=== PATIENT | male | born 1980 | race Caucasian/White ===

== ENCOUNTER 2020-11-05 15:27 | Inpatient (IN) | payer MEDICAID, SELFPAY ==
[2020-11-05] VITALS (8 sets, daily range): BP systolic 123–165; BP diastolic 68–111; PULSE 73–94; RESP 16–20; TEMP 36.6–37.1; O2SAT 97–100; BMI 29.0; BMI 27.5
[2020-11-05 16:18] LABS: Erythrocyte Sedimentation Rate 22 mm/hr (0-20)
[2020-11-05 16:19] LABS: Absolute Lymphocyte Count 1.99 X10^3/uL (0.83-4.51); Absolute Neutrophil Count 6.2 X10^3/uL (2.0-7.7); Basophil# 0.04 X10^3/uL; Basophil% 0.4 % (0-1); Eosinophil# 0.04 X10^3/uL; Eosinophils% 0.4 % (0-5); Hematocrit 45.7 % (40-54); Hemoglobin 15.4 g/dL (13.0-16.5); Lymphocyte # 1.99 X10^3/ul (4.0); Lymphocyte % 22.2 % (19-41); Mean Corp Hgb Conc 33.7 g/dL (32-36); Mean Corpuscular Hgb 32.3 pg (27.0-32.0); Mean Corpuscular Volume 95.8 fL (80-94); Mean Platelet Vol. 11.4 fl (6.2-12.0); Monocyte# 0.67 X10^3/uL; Monocyte% 7.5 % (0-10); NRBC Flagged by Analyzer 0 % (0-5); Neutrophil # 6.18 X10^3/uL (2.7-7.7); Neutrophil % 69.1 % (47-70); Platelet Count 149 K/mm3 (150-450); RBC Distribution Width CV 12.1 % (11.6-14.6); RBC Distribution Width SD 42.9 fl (35.1-43.9); Red Blood Count 4.77 M/mm3 (4.6-6.2)
[2020-11-05 16:26] LABS: Anion Gap 6 (5-15); BUN 9 mg/dL (7-18); BUN/Creat Ratio 12.1 RATIO (10-20); Calcium,Total 8.4 mg/dL (8.5-10.1); Chloride 101 mmol/L (98-107); Creatinine, Serum 0.74 mg/dL (0.70-1.30); EST Glomerular Filtration Rate 124 mL/min (>60); Est Glom Filt Rate - Afr Amer 150 mL/min (>60); Estimated Creatinine Clearance 149.96 ml/min; Glucose 104 mg/dL (74-106); Potassium 3.6 mmol/L (3.5-5.1); Sodium Level 135 mmol/L (136-145)
--- NOTE | 2020-11-05 16:27 | RAD_ITS ---
STUDY: X-RAY - RIGHT RADIUS AND ULNA REASON FOR EXAM: Male, 40 years old. infection -- IV drug use TECHNIQUE: 2 view(s) of the forearm. COMPARISON: None. FINDINGS: There is no demonstrated soft tissue swelling. Normal visualized radius. Normal visualized ulna. There is no demonstrated acute fracture. RAD/Forearm 2 Views IMPRESSION: Normal x-ray examination of the radius and ulna. Electronically Signed: Alonzo Barker MD at 16:43 EDT , Service support ,
--- NOTE | 2020-11-05 16:27 | RAD_ITS ---
STUDY: X-RAY - RIGHT WRIST REASON FOR EXAM: Male, 40 years old. infection -- IV drug use TECHNIQUE: 3 view(s) of the wrist were obtained. COMPARISON: X-ray dated October 19, 2014 FINDINGS: No demonstrated osteomyelitis. No acute fractures. Diffuse mild to moderate soft tissue swelling. Linear radiopaque density near the head of the second metacarpal bone and distal phalanx of the second digit presumably represents calcifications or small retained foreign bodies. These were present on the prior study. Normal visualized distal radius and ulna. Normal radiocarpal articulation. Normal distal radioulnar articulation. Normal carpal bones. Normal carpal articulations. Normal carpometacarpal articulation of the thumb. Normal second through fifth carpometacarpal articulations. Normal visualized metacarpal bones. RAD/Wrist min 3 Views IMPRESSION: Mild to moderate soft tissue swelling Electronically Signed: Alonzo Barker MD at 16:56 EDT , Service support ,
--- NOTE | 2020-11-05 16:27 | RAD_ITS ---
STUDY: X-RAY - LEFT FOOT CLINICAL: Male, 40 years old. WOUNDS ON DORSAL FOOT WITH REDNESS AND SWELLING, PAIN HX OF RECENT FX TO 1ST DIGIT IV DRUG USE TECHNIQUE: 3 view(s) of the foot. COMPARISON: None. FINDINGS: A pathologic horizontal fractures present through the proximal shaft of the proximal phalanx of the great toe due to cortical erosion and moderate intramedullary bony destruction in this region from active osteomyelitis. The fracture fragments are mildly displaced. Normal talus, calcaneus, and tarsal bones. Normal visualized subtalar, talonavicular, calcaneocuboid, tarsal and tarsometatarsal articulations. Normal metatarsi. Normal metatarsophalangeal joint of the great toe. Normal tibial and fibular sesamoid bones. Normal interphalangeal joint of the great toe. Normal second through fifth metatarsophalangeal joints. Normal interphalangeal joints and phalanges of the lesser toes. The soft tissues are swollen. RAD/Foot min 3 Views IMPRESSION: 1. A pathologic horizontal fractures present through the proximal shaft of the proximal phalanx of the great toe due to cortical erosion and moderate intramedullary bony destruction in this region from active osteomyelitis. Electronically Signed: Alonzo Barker MD at 16:47 EDT , Service support ,
[2020-11-05 16:29] LABS: Alcohol, Blood (Medical)-Serum < 3.0 mg/dL
[2020-11-05 16:42] LABS: Lactic Acid 1.2 mmol/L (0.4-1.9)
[2020-11-05 16:42] LABS: Amphetamine Urine VISTA POSITIVE (<1000 ng/mL); Barbiturate Urine VISTA NEGATIVE (< 200 ng/mL); Benzodiazepine Urine VISTA NEGATIVE (< 200 ng/mL); Cocaine Urine VISTA NEGATIVE (< 300 ng/mL); Ecstacy Urine VISTA NEGATIVE (< 500 ng/mL); Methadone Urine VISTA NEGATIVE (< 300 ng/mL); PCP Urine VISTA NEGATIVE (< 25 ng/mL); THC Urine VISTA POSITIVE (< 50 ng/mL); Vista UDS pH Range 6
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
[2020-11-05] MEDS: fentaNYL 100 MCG/2 ML Ampul 50 MCG IV (16:57)
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
--- NOTE | 2020-11-05 18:53 | NURSING ---
pt in bathroom, ambulatory-
--- NOTE | 2020-11-05 19:32 | PCM.RX.CS ---
Consult Pharmacy has been consulted to manage selected antiobiotic: Vancomycin Type of Consult: New start Suspected Infection: Skin/Soft tissue, Osteomyelitis Prior Doses of Antibiotics Received/Current Regimen: Medications Vancomycin HCl 1,500 mg/ (Sodium Chloride) 530 mls @ 250 mls/hr IV Q12H JEANNE Vancomycin HCl 1,500 mg/ (Sodium Chloride) 530 mls @ 250 mls/hr IV X1 ONE Stop: 11/05/20 20:37 Last Admin: 11/05/20 18:21 Dose: 250 mls/hr Labs: Sodium 135 mmol/L (136-145) L 11/05/20 15:55 Potassium 3.6 mmol/L (3.5-5.1) 11/05/20 15:55 Chloride 101 mmol/L (98-107) 11/05/20 15:55 Carbon Dioxide 28.0 mmol/L (21.0-32.0) 11/05/20 15:55 Anion Gap 6 (5-15) 11/05/20 15:55 BUN 9 mg/dL (7-18) 11/05/20 15:55 Creatinine 0.74 mg/dL (0.70-1.30) 11/05/20 15:55 Est GFR (MDRD) Af Amer 150 mL/min (>60) 11/05/20 15:55 Est GFR (MDRD) Non-Af 124 mL/min (>60) 11/05/20 15:55 BUN/Creatinine Ratio 12.1 RATIO (10-20) 11/05/20 15:55 Glucose 104 mg/dL (74-106) 11/05/20 15:55 Microbiology: Microbiology 11/05/20 16:10 Mucosa - Nose SARS-CoV-2 Antigen (Rapid) - Final Weight used for dosin.7 kg Estimated Creatinine Clearance: 150 Goal Trough: 10-15 mcg/mL Pharmacy Plan for Drug Dosing: Pharmacy Service will continue to monitor and adjust dosing as required. Follow-Up Labs: Trough Vancomycin Labs to be done on [date and time ordered]: 11/07/20 @0600
[2020-11-05] MEDS: 0.9% Normal Saline 1,000 ML 125 ML IV (19:34)
[2020-11-05] MEDS: Morphine 4 MG/ML Syringe IV ×2 (19:35→22:35)
[2020-11-05 21:18] LABS: M R Staph aureus DNA By PCR Negative (Negative); Probe Check PASS; Staph aureus DNA By PCR POSITIVE (Negative)
[2020-11-05] MEDS: 0.9% Saline Lock 10 ML Syringe IV (22:36)
[2020-11-06] MEDS: Acetaminophen 325 MG Tablet 650 MG PO (01:42)
[2020-11-06] MEDS: oxyCODONE 5 MG Tablet PO ×3 (01:42→12:24)
[2020-11-06] MEDS: 0.9% Saline Lock 10 ML Syringe IV ×4 (02:47→20:01)
[2020-11-06] MEDS: Morphine 4 MG/ML Syringe IV ×6 (02:48→22:14)
--- NOTE | 2020-11-06 02:53 | NURSING ---
pt removed dressing. pt is refusing to have left foot re-dressed at this time.
[2020-11-06 03:02] VITALS: BP 134/91; PULSE 92; RESP 18; TEMP 36.9; O2SAT 98
[2020-11-06] MEDS: 0.9% Normal Saline 1,000 ML 125 ML IV (04:51)
--- NOTE | 2020-11-06 07:00 | VDUE_ITS ---
Reason For Study: Swelling Right Proximal Right jugular vein is spontaneous, widely patent, phasic, with no intraluminal echogenicity noted. Right subclavian vein is spontaneous, widely patent, phasic, with no intraluminal echogenicity noted. Right Lower Arm Right radial vein is compressible. Right ulnar vein is compressible. Right Arm Right axillary vein is spontaneous, patent, phasic, competent, compressible and demonstrates augmentation. Right brachial vein is compressible. Right cephalic vein is compressible. Right basilic vein is compressible. Patient Safety Prelim to MS3. Interpretation Summary No evidence for acute deep venous thrombosis[right] upper extremity with patent and compressible cephalic and basilic veins. Ordering Physician: Cathryn Sanders Performed By: Aditi Jensen RVT ?
[2020-11-06 07:17] LABS: Absolute Lymphocyte Count 2.04 X10^3/uL (0.83-4.51); Basophil# 0.02 X10^3/uL; Basophil% 0.3 % (0-1); Eosinophil# 0.12 X10^3/uL; Eosinophils% 1.8 % (0-5); Hematocrit 42.9 % (40-54); Hemoglobin 14.2 g/dL (13.0-16.5); Lymphocyte # 2.04 X10^3/ul (4.0); Lymphocyte % 29.9 % (19-41); Mean Corp Hgb Conc 33.1 g/dL (32-36); Mean Corpuscular Hgb 32.2 pg (27.0-32.0); Mean Corpuscular Volume 97.3 fL (80-94); Mean Platelet Vol. 11.3 fl (6.2-12.0); Monocyte# 0.66 X10^3/uL; Monocyte% 9.7 % (0-10); NRBC Flagged by Analyzer 0 % (0-5); Neutrophil # 3.96 X10^3/uL (2.7-7.7); Platelet Count 124 K/mm3 (150-450); RBC Distribution Width CV 12.2 % (11.6-14.6); RBC Distribution Width SD 44.1 fl (35.1-43.9); Red Blood Count 4.41 M/mm3 (4.6-6.2); White Blood Count 6.8 K/mm3 (4.4-11.0)
[2020-11-06 07:45] LABS: Anion Gap 4 (5-15); BUN 8 mg/dL (7-18); BUN/Creat Ratio 12.7 RATIO (10-20); Calcium,Total 7.9 mg/dL (8.5-10.1); Chloride 107 mmol/L (98-107); Creatinine, Serum 0.63 mg/dL (0.70-1.30); EST Glomerular Filtration Rate 150 mL/min (>60); Est Glom Filt Rate - Afr Amer 182 mL/min (>60); Estimated Creatinine Clearance 176.15 ml/min; Glucose 141 mg/dL (74-106); Potassium 3.9 mmol/L (3.5-5.1); Sodium Level 136 mmol/L (136-145)
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
--- NOTE | 2020-11-06 08:41 | NURSING ---
wound photo: left foot
--- NOTE | 2020-11-06 08:42 | NURSING ---
wound photo: right medial foot
--- NOTE | 2020-11-06 08:45 | NURSING ---
Dr Storm in to see patient. pt is still refusing a dressing at this time, even after this nurse and Dr Storm recommended a dressing for wound care. will continue to monitor.
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
[2020-11-06 10:12] VITALS: BP 154/90; PULSE 65; RESP 16; TEMP 36.7; O2SAT 100
[2020-11-06] MEDS: Enoxaparin 40 MG/0.4 ML Syringe SC (10:14)
--- NOTE | 2020-11-06 10:31 | CASEMGMT ---
Social Work Note RN CM updated this worker that pt last used meth two days ago as pt went on a two week binge of meth use. Pt denied wanting resources for drug use. Pt does however would like housing resources as pt currently doesn't have a home. Pt requested that this worker provide housing resources tomorrow. SW to provide housing resources tomorrow. Aditi Rodriguez SPECIALTY DEVELOPMENT CONSULTANT, RESEARCH CHEMICAL ENGINEER
--- NOTE | 2020-11-06 13:25 | CASEMGMT ---
RN REMA Face to Face with patient for initial transition planning/care coordination assessment. RN CM introduced self and role at [facility]. Patient lying in bed, alert and oriented. Patient willing to participate in assessment and is able to answer all questions appropriately. Care providers, pharmacy, and demographics verified. Patient is unsure at to where he will go at discharge as he just came back to area and does not have a place to stay. Patient states he is interested to housing resources. Patient states he has no further needs or concerns at this time. SW updated regarding request of housing resources. CM to follow for discharge planning needs that may arise. 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 Patient states he is independent. Patient states he chews tobacco 1 can per day. Denies alcohol use. Patient denies drug use but then states he was using 2 days ago, meth and went on a 2 week ibrahim. Patient denies want resource for drug use. Patient states he was clean for 10 years before using in the last 2 weeks. Transportation: public DME/HHC: Patient denies previous HHC or SNF. Denies DME Disposition Plan: TBD by course of treatment and progress with therapy. Aditi ALVES, RN, CM
--- NOTE | 2020-11-06 14:06 | MRI_ITS ---
STUDY: MRI LEFT FOREFOOT WITHOUT CONTRAST REASON FOR EXAM: Open wounds and metatarsals, foot injury 2 weeks ago, IV drug use, evaluate for osteomyelitis. TECHNIQUE: Standardized fat and water weighted pulse sequences were obtained in all 3 orthogonal planes. COMPARISON: Radiographs 11/05/2020. FINDINGS: Normal metatarsophalangeal joint of the hallux. There is a nondisplaced fracture of the tibial sesamoid (inversion recovery sagittal image 5) with bone edema. Normal fibular sesamoid. Normal interphalangeal joint of the hallux. There is a fracture of the proximal aspect of the first proximal phalanx with mild dorsal subluxation of the distal fragment (inversion recovery sagittal images 6, 7) with bone edema but no fluid collection or osseous destruction at the fracture site. Normal distal phalanx of the great toe. Normal medial and lateral heads of the flexor hallucis brevis tendons. There is a very small volume of fluid in the distal flexor hallucis longus tendon sheath (inversion recovery sagittal image 8). Normal second through fifth metatarsophalangeal (MTP) joints. Normal interphalangeal joints of the second through fifth toes. There is a small nondisplaced fracture of the radial aspect of the second phalangeal base (T1 sagittal image 15) with bone edema. There is bone edema in the second distal phalanx (inversion recovery sagittal image 16). There is mild bone edema of the third proximal phalanx (inversion recovery sagittal image 21). There is bone edema of the proximal and distal phalanges of the fifth toe (inversion recovery sagittal image 24). There is an intermetatarsal neuroma of the second webspace (T1 series 8 image 18) measuring 0.7 cm in transverse dimension. Normal flexor and extensor tendons of the second through fifth toes. There is a nondisplaced fracture of the proximal second metatarsal diaphysis (T1 sagittal image 16). There is a mild bone contusion of the first metatarsal (inversion recovery sagittal images 7-9. There is a mild bone contusion of the third metatarsal (inversion recovery sagittal image 18). There is a nondisplaced fracture of the fourth metatarsal neck (T1 sagittal images 19, 20). There is a bone contusion of the fifth metatarsal (inversion recovery sagittal images 21, 22). There is a partial tear of Lisfranc ligament (T2 series 5 image 16). Normal intrinsic muscles of the forefoot. There is edema in the subcutis adipose space and a hematoma dorsal to the third and fourth metatarsals (T2 series 9 images 20-25) measuring approximately 0.7 x 2.4 cm (AP x transverse). MRI/Lower Ext/No Jt/w/o IMPRESSION: Fracture of the first proximal phalanx with no definitive MRI manifestations to suggest pathologic fracture from osteomyelitis. Fractures of the second metatarsal, fourth metatarsal, tibial sesamoid and second proximal phalangeal base. Bone edema of the second distal phalanx, third proximal phalanx, proximal and distal phalanges of the fifth toe, first metatarsal, third metatarsal and fifth metatarsal, more likely bone contusions rather than osteomyelitis. Partial tear of Lisfranc ligament. Intermetatarsal neuroma of the second webspace. Hematoma at the dorsal aspect of the forefoot, and edema in the subcutis adipose space. Electronically Signed: Diego Fabian MD at 10:42 EDT Tel , Service support ,
--- NOTE | 2020-11-06 14:10 | MRI_ITS ---
STUDY: MRI UPPER EXTREMITY RIGHT FOREARM REASON FOR EXAM: Right forearm redness, swelling and tenderness from wrist to midhumerus, IV drug use. TECHNIQUE: Standardized fat and water weighted pulse sequences were obtained in the coronal and sagittal planes. COMPARISON: Radiographs 11/05/2020. FINDINGS: Although there is image degradation secondary to patient motion, there is still some significant diagnostically useful information available from this examination. There is edema in the subcutis adipose space of the forearm (inversion recovery coronal series 11 images 1-17). There is no demonstrated fluid collection to suggest abscess. There is no demonstrated intramuscular edema. There is no demonstrated bone edema or osseous destruction of the radius or ulna on this limited study. There are no demonstrated osseous erosions of the right elbow or right wrist. MRI/Upper Ext/No Jt/ wo IMPRESSION: Limited study with edema in the subcutis adipose space without demonstrated soft tissue abscess, osteomyelitis or septic arthritis Electronically Signed: Diego Fabian MD at 7:45 EDT Tel , Service support ,
--- NOTE | 2020-11-06 14:12 | US_ITS ---
INDICATION: L forearm suspected abscess EXAMINATION: Left upper extremity soft tissue ultrasound. TECHNIQUE: Routine and color duplex imaging with spectral analysis. FINDINGS: In the left forearm at area of concern, there is a 2.2 x 1.3 x 1.2 cm complex hypoechoic collection in the subcutaneous fat with perilesional vascularity. There is surrounding subcutaneous edema. US/Ext Non Vasc Limited/Soft Tiss IMPRESSION: 2.2 cm left forearm abscess. Electronically Signed: Abdoulaye Laboy MD at 17:32 EDT Tel , Service support ,
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
--- NOTE | 2020-11-06 14:21 | MRI_ITS ---
STUDY: MRI UPPER EXTREMITY LEFT FOREARM REASON FOR EXAM: Left forearm pain, painful lump at skin marker, evaluate for left forearm access. TECHNIQUE: Standardized fat and water weighted pulse sequences were obtained in all 3 orthogonal planes. COMPARISON: None. FINDINGS: There is edema in the subcutis adipose space of the forearm, particularly at the anterior and ulnar aspects corresponding to the skin marker (inversion recovery axial image 13) without focal fluid collection to indicate abscess. Normal visualized flexor and extensor muscles of the forearm. Normal interosseous membrane. Normal radius and ulna, without a periosteal, cortical, or cancellous marrow abnormality. There is a small effusion of the distal radioulnar joint (inversion recovery coronal image 21). MRI/Upper Ext/No Jt/ wo IMPRESSION: Edema in the subcutis adipose space of the forearm without demonstrated soft tissue abscess. Small effusion of the distal radioulnar joint. Electronically Signed: Diego Fabian MD at 10:16 EDT Tel , Service support ,
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
[2020-11-06] MEDS: Ondansetron 4 MG/2 ML Vial IV (14:41)
[2020-11-06 16:00] VITALS: BP 169/97; PULSE 60; RESP 16; TEMP 36.4; O2SAT 100
[2020-11-06] MEDS: oxyCODONE 5 MG Tablet 10 MG PO ×2 (16:13→21:02)
[2020-11-06] MEDS: LORazepam 2 MG/ML Syringe 1 MG IV ×2 (17:46→20:01)
[2020-11-06] MEDS: MELATONIN 3 MG TABLET 6 MG PO (21:03)
[2020-11-06 21:30] VITALS: BP 122/79; PULSE 83; RESP 16; TEMP 36.6; O2SAT 98
--- NOTE | 2020-11-06 21:59 | NURSING ---
Patient requesting that we give medical information to whoever would call in and ask for it.
[2020-11-07] VITALS (12 sets, daily range): BP systolic 129–159; BP diastolic 73–95; PULSE 70–91; RESP 16–18; TEMP 36.3–37.2; O2SAT 96–99; BMI 27.5
[2020-11-07] MEDS: oxyCODONE 5 MG Tablet 10 MG PO ×3 (01:00→19:59)
[2020-11-07] MEDS: Morphine 4 MG/ML Syringe IV ×7 (01:32→22:30)
[2020-11-07 06:50] LABS: Anion Gap 8 (5-15); BUN 6 mg/dL (7-18); BUN/Creat Ratio 10.9 RATIO (10-20); Calcium,Total 8.3 mg/dL (8.5-10.1); Chloride 102 mmol/L (98-107); Creatinine, Serum 0.55 mg/dL (0.70-1.30); EST Glomerular Filtration Rate 176 mL/min (>60); Est Glom Filt Rate - Afr Amer 213 mL/min (>60); Estimated Creatinine Clearance 201.77 ml/min; Glucose 113 mg/dL (74-106); Potassium 3.8 mmol/L (3.5-5.1); Sodium Level 136 mmol/L (136-145)
--- NOTE | 2020-11-07 07:37 | PCM.PN.ORT ---
Patient Problems: Active and Suspected Problems Non-pressure chronic ulcer of other part of left foot with fat layer exposed (Acute) Non-pressure chronic ulcer of other part of right foot with fat layer exposed (Acute) Fracture of left great toe (Acute) Cellulitis of left foot (Acute) Subjective: Patient lying in bed sleeping. Patient was easy to awake. Patient was alert to person place and time. Patient states he is still having a lot of pain in his right arm. Patient does feels it has gotten somewhat better, and feels the swelling has gone down as well. Patient states that he is still having pain in the left forearm, but feels this is getting better as well. Denies any chest pain, shortness of breath, calf pain, nausea vomiting. Has any fever chills or rigor Objective: Exam, I found patient sleeping comfortably in bed. Patient was easy to awake. Patient no respiratory distress. Exam of the right arm patient appears to have significant improvement of the erythema that had extended just above the elbow. There is minimal to no erythema appreciated at this time of the region of the elbow and right forearm. Patient however still complains of significant pain to any palpation to the forearm wrist or hand. Patient also complains of noted pain with flexion extension of the wrist and digits of the hand. Patient has good radial ulnar pulses good cap refill, and good sensation of the right hand. The fluid-filled fluctuant mass was in the forearm appears to be resolving as well patient still maintains an approximately 3 cm x 3 cm firm fluid-filled mass which is tender to palpation. Patient has good flexion-extension of the elbow wrist and hand with minimal discomfort. Neurovascular is otherwise intact in the left arm. No axillary or brachial lymph nodes were noted of the upper extremities. - Physical Exam Vitals/I&O's: Vital Signs Temp Pulse Resp BP Pulse Ox 98.0 F 72 16 152/73 H 96 11/07/20 05:05 11/07/20 05:05 11/07/20 05:05 11/07/20 05:05 11/07/20 05:05 Oxygen Delivery Method Room Air Weight: 94.7 kg Body Mass Index (BMI) 27.5 Intake and Output for Last 24 Hours 11/05/20 11/06/20 11/07/20 23:59 23:59 23:59 Intake Total 782.08 / 782.08 3653.25 / 4453.25 1424 / 1424 Output Total 300 / 300 2450 / 3050 1700 / 1700 Balance 482.08 / 482.08 1203.25 / 1403.25 -276 / -276 General: Alert, Oriented x3, Cooperative HEENT: PERRLA Oral: Moist Mucosa Neck: No Nodes Extremities: No cyanosis, Peripheral Pulses Normal, Tenderness Skin: No rashes Musculoskeletal: Tenderness Neurological: Cranial nerves II-XII grossly intact Psych/Mental Status: Normal Affect, Alert and oriented to time, place, person, mood and affect Microbiology Past 72 Hours 11/05/20 18:45 Exudate Gram Stain - Final 11/05/20 18:45 Exudate Wound Culture - Preliminary Staphylococcus aureus 11/05/20 16:10 Mucosa - Nose SARS-CoV-2 Antigen (Rapid) - Final Laboratory Results 11/06/20 06:50: Sodium 136, Potassium 3.9, Chloride 107, Carbon Dioxide 25.0, Anion Gap 4 L, BUN 8, Creatinine 0.63 L, Estim Creat Clear Calc 176.15, Est GFR (MDRD) Af Amer 182, Est GFR (MDRD) Non-Af 150, BUN/Creatinine Ratio 12.7, Glucose 141 H, Calcium 7.9 L 11/07/20 06:04: Sodium 136, Potassium 3.8, Chloride 102, Carbon Dioxide 26.0, Anion Gap 8, BUN 6 L, Creatinine 0.55 L, Estim Creat Clear Calc 201.77, Est GFR (MDRD) Af Amer 213, Est GFR (MDRD) Non-Af 176, BUN/Creatinine Ratio 10.9, Glucose 113 H, Calcium 8.3 L 11/07/20 06:04: Hepatitis A IgM Ab Pending, Hep Bs Antigen Pending, Hep B Core IgM Ab Pending, Hepatitis C Ab (EIA) Pending 11/07/20 06:04: HIV 1&2 Antibody Pending 11/07/20 06:04: Vit D 1,25-Dihydroxy Pending 11/07/20 06:04: WBC Pending, RBC Pending, Hgb Pending, Hct Pending, MCV Pending, MCH Pending, MCHC Pending, RDW Std Deviation Pending, RDW Coeff of Zahra Pending, Plt Count Pending, Neut % (Auto) Pending, Absolute Neuts (auto) Pending Current Medications Acetaminophen (Acetaminophen 325 Mg Tablet) 650 mg PO Q6H PRN PRN PRN Reason: Pain Score 1-10/Temp > 100.7 F Last Admin: 11/06/20 01:42 Dose: 650 mg Documented by: Enoxaparin Sodium (Enoxaparin 40 Mg/0.4 Ml Syringe) 40 mg SC DAILY [facility] Last Admin: 11/06/20 10:14 Dose: 40 mg Documented by: Vancomycin IV Pharmacy to Dose (1 ea/ Sodium Chloride) 500 mls @ 250 mls/hr IV PRN PRN; Protocol PRN Reason: Rx to Dose Vancomycin HCl 1,500 mg/ (Sodium Chloride) 530 mls @ 250 mls/hr IV Q12H [facility] Last Admin: 11/07/20 06:32 Dose: 250 mls/hr Documented by: Ampicillin Sodium/Sulbactam (Sodium 3 gm/ Sodium Chloride) 112 mls @ 150 mls/hr IV Q6 [facility] Last Infusion: 11/07/20 05:57 Dose: Infused Documented by: Ketorolac Tromethamine (Ketorolac 30 Mg/Ml Syringe) 30 mg IV Q6H PRN PRN PRN Reason: Pain 1-10 or Fever Stop: 11/11/20 14:11 Melatonin (Melatonin 3 Mg Tablet) 6 mg PO QHS [facility] Last Admin: 11/06/20 21:03 Dose: 6 mg Documented by: Morphine Sulfate (Morphine 4 Mg/Ml Syringe) 4 mg IV Q3H PRN PRN PRN Reason: Pain Score 6-10 Last Admin: 11/07/20 05:08 Dose: 4 mg Documented by: Nicotine (Nicotine 21 Mg Patch) 21 mg TD DAILY [facility] Last Admin: 11/06/20 21:03 Dose: 21 mg Documented by: Ondansetron HCl (Ondansetron 4 Mg/2 Ml Vial) 4 mg IV Q8H PRN PRN PRN Reason: NAUSEA/VOMITING Last Admin: 11/06/20 14:41 Dose: 4 mg Documented by: Oxycodone HCl (Oxycodone 5 Mg Tablet) 10 mg PO Q4H PRN PRN PRN Reason: Pain Score 6-10 Last Admin: 11/07/20 01:00 Dose: 10 mg Documented by: Sodium Chloride (0.9% Saline Lock 10 Ml Syringe) 10 - 40 ml IV UD PRN PRN Reason: SALINE FLUSH Last Admin: 11/06/20 20:01 Dose: 10 ml Documented by: Medical Necessity - Tobacco Use Smoking Status: Current every day smoker Assessment/Plan All Active Problems Non-pressure chronic ulcer of other part of left foot with fat layer exposed (Acute) Non-pressure chronic ulcer of other part of right foot with fat layer exposed (Acute) Fracture of left great toe (Acute) Cellulitis of left foot (Acute) Impression: Acute cellulitis of the right hand wrist and forearm, with acute inflammatory tendinitis Acute cellulitis with early onset abscess to the left forearm Plan 1. Continue all pain medications as prescribed 2. Consider discontinuing the Toradol and starting Celebrex 200 mg twice daily. 3. Continue antibiotic treatment as prescribed by ID 4. MRI pending of the upper extremities. 5. Continue every 4 hour neurovascular checks of the upper extremities. 6. Begin physical therapy for range of motion of the upper extremities.
[2020-11-07 07:54] LABS: Absolute Lymphocyte Count 1.91 X10^3/uL (0.83-4.51); Absolute Neutrophil Count 3.4 X10^3/uL (2.0-7.7); Basophil# 0.03 X10^3/uL; Basophil% 0.5 % (0-1); Eosinophil# 0.17 X10^3/uL; Eosinophils% 2.8 % (0-5); Hematocrit 41.1 % (40-54); Hemoglobin 13.7 g/dL (13.0-16.5); Lymphocyte # 1.91 X10^3/ul (4.0); Lymphocyte % 31.2 % (19-41); Mean Corp Hgb Conc 33.3 g/dL (32-36); Mean Platelet Vol. 11.4 fl (6.2-12.0); Monocyte# 0.58 X10^3/uL; Monocyte% 9.5 % (0-10); NRBC Flagged by Analyzer 0 % (0-5); Neutrophil # 3.42 X10^3/uL (2.7-7.7); Neutrophil % 55.7 % (47-70); Platelet Count 158 K/mm3 (150-450); RBC Distribution Width CV 12.1 % (11.6-14.6); RBC Distribution Width SD 42.4 fl (35.1-43.9); Red Blood Count 4.28 M/mm3 (4.6-6.2); White Blood Count 6.1 K/mm3 (4.4-11.0)
[2020-11-07] MEDS: 0.9% Saline Lock 10 ML Syringe IV ×3 (08:34→22:30)
[2020-11-07 08:59] LABS: Amphetamine Urine VISTA POSITIVE (<1000 ng/mL); Barbiturate Urine VISTA NEGATIVE (< 200 ng/mL); Benzodiazepine Urine VISTA NEGATIVE (< 200 ng/mL); Cocaine Urine VISTA NEGATIVE (< 300 ng/mL); Ecstacy Urine VISTA NEGATIVE (< 500 ng/mL); Methadone Urine VISTA NEGATIVE (< 300 ng/mL); PCP Urine VISTA NEGATIVE (< 25 ng/mL); THC Urine VISTA POSITIVE (< 50 ng/mL); Vista UDS pH Range 6
[2020-11-07 09:33] LABS: HIV - WCH Non-Reactive (Nonreactive)
--- NOTE | 2020-11-07 10:14 | PCM.PN.ID ---
Patient Problems: Active and Suspected Problems Non-pressure chronic ulcer of other part of left foot with fat layer exposed (Acute) Non-pressure chronic ulcer of other part of right foot with fat layer exposed (Acute) Fracture of left great toe (Acute) Cellulitis of left foot (Acute) Subjective: Arms still swollen, painful, no fever - Physical Exam Vitals/I&O's: Vital Signs Temp Pulse Resp BP Pulse Ox 98.1 F 74 16 157/95 H 96 11/07/20 08:04 11/07/20 08:04 11/07/20 08:04 11/07/20 08:04 11/07/20 08:04 Oxygen Delivery Method Room Air Weight: 94.7 kg Body Mass Index (BMI) 27.5 Intake and Output for Last 24 Hours 11/05/20 11/06/20 11/07/20 23:59 23:59 23:59 Intake Total 782.08 / 782.08 3653.25 / 4453.25 1424 / 1424 Output Total 300 / 300 2450 / 3050 1700 / 1700 Balance 482.08 / 482.08 1203.25 / 1403.25 -276 / -276 General: Alert, Cooperative, No apparent distress Lungs: Clear to auscultation, Normal air movement Cardiovascular: Regular rate, Regular Rhythm Abdomen: Soft, Non Tender, Non-Distended Skin: Ulcer/ Wound - L foot wrapped. R forearm swelling. L wrist and elbow less swollen, very painful with limited movement. Microbiology Past 72 Hours 11/05/20 18:45 Exudate Gram Stain - Final 11/05/20 18:45 Exudate Wound Culture - Final Staphylococcus aureus 11/05/20 16:10 Mucosa - Nose SARS-CoV-2 Antigen (Rapid) - Final Laboratory Results 11/07/20 06:04: Sodium 136, Potassium 3.8, Chloride 102, Carbon Dioxide 26.0, Anion Gap 8, BUN 6 L, Creatinine 0.55 L, Estim Creat Clear Calc 201.77, Est GFR (MDRD) Af Amer 213, Est GFR (MDRD) Non-Af 176, BUN/Creatinine Ratio 10.9, Glucose 113 H, Calcium 8.3 L 11/07/20 06:04: Hepatitis A IgM Ab Pending, Hep Bs Antigen Pending, Hep B Core IgM Ab Pending, Hepatitis C Ab (EIA) Pending 11/07/20 06:04: HIV 1&2 Antibody Non-Reactive 11/07/20 06:04: Vit D 1,25-Dihydroxy Pending 11/07/20 06:04: WBC 6.1, RBC 4.28 L, Hgb 13.7, Hct 41.1, MCV 96.0 H, MCH 32.0, MCHC 33.3, RDW Std Deviation 42.4, RDW Coeff of Zahra 12.1, Plt Count 158, MPV 11.4, Immature Gran % (Auto) 0.300, Neut % (Auto) 55.7, Lymph % (Auto) 31.2, [place] % (Auto) 9.5, Eos % (Auto) 2.8, Baso % (Auto) 0.5, Absolute Neuts (auto) 3.4, Absolute Lymphs (auto) 1.91, Nucleated RBC % 0 11/07/20 08:38: Urine Opiates Screen POSITIVE H, Urine Methadone Screen NEGATIVE, Ur Barbiturates Screen NEGATIVE, Ur Phencyclidine Scrn NEGATIVE, Ur Amphetamines Screen POSITIVE H, U Methamphetamin-MDMA NEGATIVE, U Benzodiazepines Scrn NEGATIVE, Urine Cocaine Screen NEGATIVE, U Cannabinoids Screen POSITIVE H, Ur Drug Screen Comment Current Medications Acetaminophen (Acetaminophen 325 Mg Tablet) 650 mg PO Q6H PRN PRN PRN Reason: Pain Score 1-10/Temp > 100.7 F Last Admin: 11/06/20 01:42 Dose: 650 mg Documented by: Enoxaparin Sodium (Enoxaparin 40 Mg/0.4 Ml Syringe) 40 mg SC DAILY [facility] Last Admin: 11/06/20 10:14 Dose: 40 mg Documented by: Vancomycin IV Pharmacy to Dose (1 ea/ Sodium Chloride) 500 mls @ 250 mls/hr IV PRN PRN; Protocol PRN Reason: Rx to Dose Vancomycin HCl 1,500 mg/ (Sodium Chloride) 530 mls @ 250 mls/hr IV Q12H [facility] Last Admin: 11/07/20 06:32 Dose: 250 mls/hr Documented by: Ampicillin Sodium/Sulbactam (Sodium 3 gm/ Sodium Chloride) 112 mls @ 150 mls/hr IV Q6 [facility] Last Infusion: 11/07/20 05:57 Dose: Infused Documented by: Ketorolac Tromethamine (Ketorolac 30 Mg/Ml Syringe) 30 mg IV Q6H PRN PRN PRN Reason: Pain 1-10 or Fever Stop: 11/11/20 14:11 Melatonin (Melatonin 3 Mg Tablet) 6 mg PO QHS [facility] Last Admin: 11/06/20 21:03 Dose: 6 mg Documented by: Morphine Sulfate (Morphine 4 Mg/Ml Syringe) 4 mg IV Q3H PRN PRN PRN Reason: Pain Score 6-10 Last Admin: 11/07/20 08:33 Dose: 4 mg Documented by: Nicotine (Nicotine 21 Mg Patch) 21 mg TD DAILY [facility] Last Admin: 11/06/20 21:03 Dose: 21 mg Documented by: Ondansetron HCl (Ondansetron 4 Mg/2 Ml Vial) 4 mg IV Q8H PRN PRN PRN Reason: NAUSEA/VOMITING Last Admin: 11/06/20 14:41 Dose: 4 mg Documented by: Oxycodone HCl (Oxycodone 5 Mg Tablet) 10 mg PO Q4H PRN PRN PRN Reason: Pain Score 6-10 Last Admin: 11/07/20 07:52 Dose: 10 mg Documented by: Sodium Chloride (0.9% Saline Lock 10 Ml Syringe) 10 - 40 ml IV UD PRN PRN Reason: SALINE FLUSH Last Admin: 11/07/20 08:34 Dose: 10 ml Documented by: Medical Necessity - Tobacco Use Smoking Status: Current every day smoker Route of nutrition/ use of supplements: [] Nutritional Intake: [] IV Site: [] Quinn Catheter: [] - Assessment/Plan Antibiotics: [] Assessment/Plan: [] Active and Suspected Problems Non-pressure chronic ulcer of other part of left foot with fat layer exposed (Acute) Non-pressure chronic ulcer of other part of right foot with fat layer exposed (Acute) Fracture of left great toe (Acute) Cellulitis of left foot (Acute) L foot trauma - podiatry following, debridement planned. Wound cx with staph aureus, mssa on pcr. IVDU with concern for septic arthritis/tendonitis of R elbow and wrist and abscess L forearm - ortho following. On vanc, unasyn. Pending hiv and hep panel. Reviewed imaging results. Will need some sort of I&D. Will follow
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
[2020-11-07] MEDS: Lactated Ringers 1,000 ML 100 ML IV ×2 (12:27→15:44)
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
[2020-11-07] MEDS: Lidocaine 1% (30 ml sdv) 30 ML Vial (13:23)
[2020-11-07] MEDS: Bupivacaine Mpf 0.5% 30 ML VIAL (13:23)
--- NOTE | 2020-11-07 13:40 | CASEMGMT ---
Social Work Note SW attempted to meet with pt to provide housing resources, pt currently off floor. SW will meet with pt tomorrow. Aditi Rodriguez SACK REPAIRER, SURGERY TECH
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
[2020-11-07] MEDS: Juven (unflavored) Packet 1 PACKET PO (18:06)
[2020-11-07 18:50] LABS: Vancomycin, Trough Level 7.7 ug/mL (5.0-15.0)
--- NOTE | 2020-11-07 19:55 | PCM.RX.CS ---
Consult Pharmacy has been consulted to manage selected antiobiotic: Vancomycin Type of Consult: Follow-up Suspected Infection: Osteomyelitis Prior Doses of Antibiotics Received/Current Regimen: Medications Discontinued Medications Vancomycin HCl 1,500 mg/ (Sodium Chloride) 530 mls @ 250 mls/hr IV Q12H [facility] Last Admin: 11/07/20 18:54 Dose: 250 mls/hr Documented by: Labs: Sodium 136 mmol/L (136-145) 11/07/20 06:04 Potassium 3.8 mmol/L (3.5-5.1) 11/07/20 06:04 Chloride 102 mmol/L (98-107) 11/07/20 06:04 Carbon Dioxide 26.0 mmol/L (21.0-32.0) 11/07/20 06:04 Anion Gap 8 (5-15) 11/07/20 06:04 BUN 6 mg/dL (7-18) L 11/07/20 06:04 Creatinine 0.55 mg/dL (0.70-1.30) L 11/07/20 06:04 Est GFR (MDRD) Af Amer 213 mL/min (>60) 11/07/20 06:04 Est GFR (MDRD) Non-Af 176 mL/min (>60) 11/07/20 06:04 BUN/Creatinine Ratio 10.9 RATIO (10-20) 11/07/20 06:04 Glucose 113 mg/dL (74-106) H 11/07/20 06:04 Vancomycin Trough 7.7 ug/mL (5.0-15.0) 11/07/20 17:57 Microbiology: Microbiology 11/05/20 18:45 Exudate Gram Stain - Final 11/05/20 18:45 Exudate Wound Culture - Final Staphylococcus aureus 11/05/20 16:10 Mucosa - Nose SARS-CoV-2 Antigen (Rapid) - Final Weight used for dosin.7 kg Estimated Creatinine Clearance: >100 Goal Trough: 10-15 mcg/mL Pharmacy Plan for Drug Dosing: Vancomycin trough returned at 7.7 mg/L which is below goal of 10-15. The dosing interval will be increased to every 8 hours with the next dose at 11/08/20 0300. Pharmacy Service will continue to monitor and adjust dosing as required. Follow-Up Labs: Trough Vancomycin - before 4th dose Labs to be done on [date and time ordered]: 11/09/20 0235
[2020-11-07] MEDS: Zolpidem Tartrate 5 MG Tablet PO (22:29)
[2020-11-07] MEDS: Celecoxib 200 MG Capsule PO (22:29)
[2020-11-07] MEDS: MELATONIN 3 MG TABLET 6 MG PO (22:30)
--- NOTE | 2020-11-07 23:30 | NURSING ---
Pt called out stating he needed his wraps off. I spoke to Loi who is his nurse and she stated that what he wants is to take off his ava wraps that were placed on him by the surgeon. I went back to the room and the pt states they are itching and he was going to take the wraps off and then put them back on. I advised him that he shouldn't remove them d/t risk of infection. He stated he was going to use gloves to remove the wraps and then put them back on. He was irate stating if you guys won't help me I'm taking them off myself. Loi RN advised.
--- NOTE | 2020-11-08 00:02 | NURSING ---
This RN went back to pts room in response to pts wraps itching. this RN told pt that we cannot remove the dressings as they are a surgical dressing placed by the MD. Pt was sticking pens down into CLAUDIO wraps to itch the LLE. this RN told pt that he should not do that as it can lead to infection. pt aware and arguable. this RN told pt that i will ask the MD for benedryl to help relieve itching and to please not stick anything down CLAUDIO wraps. pt acknowledged
[2020-11-08] MEDS: oxyCODONE 5 MG Tablet 10 MG PO ×5 (00:16→21:25)
[2020-11-08] MEDS: 0.9% Saline Lock 10 ML Syringe IV ×5 (00:43→18:26)
[2020-11-08] MEDS: DiphenhydrAMINE 50 MG/ML Syringe 12.5 MG IV (00:43)
[2020-11-08] MEDS: Morphine 4 MG/ML Syringe IV ×6 (02:58→22:12)
[2020-11-08 06:05] VITALS: BP 150/73; PULSE 56; RESP 18; TEMP 36.4; O2SAT 98
[2020-11-08 06:07] LABS: HEPATITIS B SURFACE AG Negative (Negative); Hepatitis A IgM Antibody Negative (Negative); Hepatitis B Core AB IgM Negative (Negative)
[2020-11-08 06:09] LABS: Absolute Lymphocyte Count 1.46 X10^3/uL (0.83-4.51); Absolute Neutrophil Count 8.6 X10^3/uL (2.0-7.7); Basophil# 0.01 X10^3/uL; Basophil% 0.1 % (0-1); Hematocrit 42.4 % (40-54); Hemoglobin 14.5 g/dL (13.0-16.5); Lymphocyte # 1.46 X10^3/ul (4.0); Lymphocyte % 13.4 % (19-41); Mean Corp Hgb Conc 34.2 g/dL (32-36); Mean Corpuscular Hgb 32.4 pg (27.0-32.0); Mean Corpuscular Volume 94.9 fL (80-94); Mean Platelet Vol. 10.4 fl (6.2-12.0); Monocyte# 0.81 X10^3/uL; Monocyte% 7.4 % (0-10); NRBC Flagged by Analyzer 0 % (0-5); Neutrophil % 78.8 % (47-70); Platelet Count 180 K/mm3 (150-450); RBC Distribution Width CV 11.7 % (11.6-14.6); RBC Distribution Width SD 40.6 fl (35.1-43.9); Red Blood Count 4.47 M/mm3 (4.6-6.2); White Blood Count 10.9 K/mm3 (4.4-11.0)
[2020-11-08 06:42] LABS: Anion Gap 5 (5-15); BUN 12 mg/dL (7-18); BUN/Creat Ratio 20.8 RATIO (10-20); Calcium,Total 8.3 mg/dL (8.5-10.1); Chloride 107 mmol/L (98-107); Creatinine, Serum 0.58 mg/dL (0.70-1.30); EST Glomerular Filtration Rate 166 mL/min (>60); Est Glom Filt Rate - Afr Amer 200 mL/min (>60); Estimated Creatinine Clearance 191.33 ml/min; Glucose 105 mg/dL (74-106); Potassium 4.2 mmol/L (3.5-5.1); Sodium Level 139 mmol/L (136-145)
[2020-11-08] MEDS: Celecoxib 200 MG Capsule PO ×2 (08:00→21:19)
[2020-11-08] MEDS: Juven (unflavored) Packet 1 PACKET PO (08:00)
[2020-11-08] MEDS: Enoxaparin 40 MG/0.4 ML Syringe SC (08:01)
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
[2020-11-08 08:14] VITALS: BP 154/85; PULSE 57; RESP 18; TEMP 36.7; O2SAT 97
--- NOTE | 2020-11-08 09:20 | NURSING ---
wound photo: left foot
--- NOTE | 2020-11-08 09:21 | NURSING ---
wound photo: right medial foot
--- NOTE | 2020-11-08 11:09 | CASEMGMT ---
Social Work SW attempted to meet with pt to provide housing resources. SW woke pt, pt states he is very tired due to medications and requested SW visit at a later time. SW will follow up. SLAVA Herrera
--- NOTE | 2020-11-08 11:33 | PCM.PN.ORT ---
Patient Problems: Active and Suspected Problems Non-pressure chronic ulcer of other part of left foot with fat layer exposed (Acute) Non-pressure chronic ulcer of other part of right foot with fat layer exposed (Acute) Fracture of left great toe (Acute) Cellulitis of left foot (Acute) Fracture of metatarsal of left foot, closed (Acute) Abscess of left foot (Acute) Subjective: Patient sitting up in bed watching TV. When I entered the room I found patient holding his telephone using his right hand and fingers to operate his telephone. Patient reports that he has had significant improvement of pain and discomfort in the right hand forearm and elbow. Patient states his left forearm are still sore but feels is getting better as well. Patient this time has no other complaints. Objective: Patient sitting up in bed resting comfortably. On exam of the right arm I found patient to have near complete resolve all erythema of the distal humeral region elbow, and forearm, wrist and hand. Patient has good motion of the digits of the hand. Patient still has some discomfort with radial deviation of the wrist. 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 Patient has good flexion-extension of the elbow without pain. Patient has no axillary or brachial lymph nodes. Neurovascular is otherwise intact. Examined her left arm I found patient to have a proximately 2 cm firm mass in the medial aspect of the midforearm. The tenderness has subsided significantly from his previous exam. The erythema has resolved. Patient has full motion of the elbow wrist and hand of the left arm without pain or or limitations. She has no axillary or brachial lymph nodes on the left arm. - Physical Exam Vitals/I&O's: Vital Signs Temp Pulse Resp BP Pulse Ox 98.1 F 57 L 18 154/85 H 97 11/08/20 08:14 11/08/20 08:14 11/08/20 08:14 11/08/20 08:14 11/08/20 08:14 Oxygen Delivery Method Room Air Weight: 94.7 kg Body Mass Index (BMI) 27.5 Intake and Output for Last 24 Hours 11/06/20 11/07/20 11/08/20 23:59 23:59 23:59 Intake Total 3653.25 / 4453.25 4286.33 / 4286.33 2053 / 2053 Output Total 2450 / 3050 4025 / 4025 600 / 600 Balance 1203.25 / 1403.25 261.33 / 261.33 1454 / 1454 Microbiology Past 72 Hours 11/07/20 Unknown Abs - Left Foot Gram Stain - Final 11/05/20 16:50 Blood Culture (Wb) - Other Blood Culture - Preliminary No growth in 48 hours. 11/05/20 15:55 Blood Culture (Wb) - Arm Left Blood Culture - Preliminary No growth in 48 hours. 11/05/20 18:45 Exudate Gram Stain - Final 11/05/20 18:45 Exudate Wound Culture - Final Staphylococcus aureus 11/05/20 16:10 Mucosa - Nose SARS-CoV-2 Antigen (Rapid) - Final Laboratory Results 11/07/20 17:57: Vancomycin Trough 7.7 11/08/20 06:04: WBC 10.9, RBC 4.47 L, Hgb 14.5, Hct 42.4, MCV 94.9 H, MCH 32.4 H, MCHC 34.2, RDW Std Deviation 40.6, RDW Coeff of Zahra 11.7, Plt Count 180, MPV 10.4, Immature Gran % (Auto) 0.300, Neut % (Auto) 78.8 H, Lymph % (Auto) 13.4 L, [place] % (Auto) 7.4, Eos % (Auto) 0.0, Baso % (Auto) 0.1, Absolute Neuts (auto) 8.6 H, Absolute Lymphs (auto) 1.46, Nucleated RBC % 0 11/08/20 06:04: Sodium 139, Potassium 4.2, Chloride 107, Carbon Dioxide 27.0, Anion Gap 5, BUN 12, Creatinine 0.58 L, Estim Creat Clear Calc 191.33, Est GFR (MDRD) Af Amer 200, Est GFR (MDRD) Non-Af 166, BUN/Creatinine Ratio 20.8 H, Glucose 105, Calcium 8.3 L Current Medications Acetaminophen (Acetaminophen 325 Mg Tablet) 650 mg PO Q6H PRN PRN PRN Reason: Pain Score 1-10/Temp > 100.7 F Last Admin: 11/06/20 01:42 Dose: 650 mg Documented by: Celecoxib (Celecoxib 200 Mg Capsule) 200 mg PO BID [facility] Last Admin: 11/08/20 08:00 Dose: 200 mg Documented by: Diphenhydramine HCl (Diphenhydramine 50 Mg/Ml Syringe) 12.5 mg IV Q4H PRN PRN PRN Reason: ITCHING Last Admin: 11/08/20 00:43 Dose: 12.5 mg Documented by: Enoxaparin Sodium (Enoxaparin 40 Mg/0.4 Ml Syringe) 40 mg SC DAILY [facility] Last Admin: 11/08/20 08:01 Dose: 40 mg Documented by: Vancomycin IV Pharmacy to Dose (1 ea/ Sodium Chloride) 500 mls @ 250 mls/hr IV PRN PRN; Protocol PRN Reason: Rx to Dose Ampicillin Sodium/Sulbactam (Sodium 3 gm/ Sodium Chloride) 112 mls @ 150 mls/hr IV Q6 [facility] Last Infusion: 11/08/20 07:40 Dose: Infused Documented by: Lactated Ringer's () 1,000 mls @ 100 mls/hr IV .Q10H [facility] Last Infusion: 11/08/20 01:44 Dose: Infused Documented by: Vancomycin HCl 1,500 mg/ (Sodium Chloride) 530 mls @ 250 mls/hr IV Q8H [facility] Last Infusion: 11/08/20 05:06 Dose: Infused Documented by: L-Arginine/L-Glutamine/Calcium HMB (Ab (Unflavored) Packet) 1 packet PO BIDCM [facility] Last Admin: 11/08/20 08:00 Dose: 1 packet Documented by: Melatonin (Melatonin 3 Mg Tablet) 6 mg PO QHS [facility] Last Admin: 11/07/20 22:30 Dose: 6 mg Documented by: Morphine Sulfate (Morphine 4 Mg/Ml Syringe) 4 mg IV Q3H PRN PRN PRN Reason: Pain Score 6-10 Last Admin: 11/08/20 06:47 Dose: 4 mg Documented by: Nicotine (Nicotine 21 Mg Patch) 21 mg TD DAILY [facility] Last Admin: 11/08/20 08:09 Dose: 21 mg Documented by: Ondansetron HCl (Ondansetron 4 Mg/2 Ml Vial) 4 mg IV Q8H PRN PRN PRN Reason: NAUSEA/VOMITING Last Admin: 11/06/20 14:41 Dose: 4 mg Documented by: Oxycodone HCl (Oxycodone 5 Mg Tablet) 10 mg PO Q4H PRN PRN PRN Reason: Pain Score 6-10 Last Admin: 11/08/20 08:01 Dose: 10 mg Documented by: Sodium Chloride (0.9% Saline Lock 10 Ml Syringe) 10 - 40 ml IV UD PRN PRN Reason: SALINE FLUSH Last Admin: 11/08/20 06:47 Dose: 10 ml Documented by: Zolpidem Tartrate (Zolpidem Tartrate 5 Mg Tablet) 5 mg PO QHS PRN PRN PRN Reason: INSOMNIA Last Admin: 11/07/20 22:29 Dose: 5 mg Documented by: Medical Necessity - Tobacco Use Smoking Status: Current every day smoker Assessment/Plan All Active Problems Non-pressure chronic ulcer of other part of left foot with fat layer exposed (Acute) Non-pressure chronic ulcer of other part of right foot with fat layer exposed (Acute) Fracture of left great toe (Acute) Cellulitis of left foot (Acute) Fracture of metatarsal of left foot, closed (Acute) Abscess of left foot (Acute) Impression: Acute cellulitis of the right hand wrist and forearm, with acute inflammatory tendinitis Acute cellulitis with early onset abscess to the left forearm Plan 1. Continue all pain medications as prescribed 2. Continue antibiotic therapy as directed by ID. 3. Continue physical therapy for strength and range of motion. 4. Continue anti-inflammatories as prescribed by medicine. Possible discharge on Celebrex 200 mg daily for 30 days. 5. Follow-up with orthopedics as needed 6. Follow-up with Dr. Walsh if no improvement of the mass on the left forearm.
--- NOTE | 2020-11-08 11:39 | PCM.PN.HOSP ---
Patient Problems: Active and Suspected Problems Non-pressure chronic ulcer of other part of left foot with fat layer exposed (Acute) Non-pressure chronic ulcer of other part of right foot with fat layer exposed (Acute) Fracture of left great toe (Acute) Cellulitis of left foot (Acute) Fracture of metatarsal of left foot, closed (Acute) Abscess of left foot (Acute) Subjective: Patient seen and examined. He feels much better today. The pain in his right forearm and left arm are much better. He is able to make a fist with his right hand now. Pain in his foot is also well controlled. Review of systems is otherwise negative. Vitals/I&O's: Vital Signs Temp Pulse Resp BP Pulse Ox 98.1 F 57 L 18 154/85 H 97 11/08/20 08:14 11/08/20 08:14 11/08/20 08:14 11/08/20 08:14 11/08/20 08:14 Oxygen Delivery Method Room Air Weight: 208 lb 12.444 oz Body Mass Index (BMI) 27.5 Intake and Output for Last 24 Hours 11/06/20 11/07/20 11/08/20 23:59 23:59 23:59 Intake Total 3653.25 / 4453.25 4286.33 / 4286.33 2053 / 205 Output Total 2450 / 3050 4025 / 4025 600 / 600 Balance 1203.25 / 1403.25 261.33 / 261.33 1454 / 1454 General: Alert, Oriented x3, Cooperative, No apparent distress HEENT: Atraumatic, PERRLA, EOMI, Normocephalic Oral: Dry Mucosa Neck: Supple, No JVD, Negative Carotid Bruits Lungs: Clear to auscultation, Normal air movement, No rhonchi, No wheeze, No rales Cardiovascular: Regular rate, No murmurs Abdomen: Bowel Sounds Present, Soft, Non Tender Extremities: No clubbing, No cyanosis, No edema, Capillary Refill Less than 3 Seconds Skin: - - left foot is wrapped in bandage Musculoskeletal: - - redness of RUE has improved. soft, fluctuant area is much better, able to make a firm fist with right hand. Swelling over left posterior forearm is less tender today. Neurological: Cranial nerves II-XII grossly intact, Neuro grossly intact, Motor Exam 5/5 strength throughout Psych/Mental Status: Normal Affect, Appropriate, Alert and oriented to time, place, person, mood and affect Microbiology Past 72 Hours 11/07/20 Unknown Abs - Left Foot Gram Stain - Final 11/05/20 16:50 Blood Culture (Wb) - Other Blood Culture - Preliminary No growth in 48 hours. 11/05/20 15:55 Blood Culture (Wb) - Arm Left Blood Culture - Preliminary No growth in 48 hours. 11/05/20 18:45 Exudate Gram Stain - Final 11/05/20 18:45 Exudate Wound Culture - Final Staphylococcus aureus 11/05/20 16:10 Mucosa - Nose SARS-CoV-2 Antigen (Rapid) - Final Laboratory Results 11/07/20 17:57: Vancomycin Trough 7.7 11/08/20 06:04: WBC 10.9, RBC 4.47 L, Hgb 14.5, Hct 42.4, MCV 94.9 H, MCH 32.4 H, MCHC 34.2, RDW Std Deviation 40.6, RDW Coeff of Zahra 11.7, Plt Count 180, MPV 10.4, Immature Gran % (Auto) 0.300, Neut % (Auto) 78.8 H, Lymph % (Auto) 13.4 L, [place] % (Auto) 7.4, Eos % (Auto) 0.0, Baso % (Auto) 0.1, Absolute Neuts (auto) 8.6 H, Absolute Lymphs (auto) 1.46, Nucleated RBC % 0 11/08/20 06:04: Sodium 139, Potassium 4.2, Chloride 107, Carbon Dioxide 27.0, Anion Gap 5, BUN 12, Creatinine 0.58 L, Estim Creat Clear Calc 191.33, Est GFR (MDRD) Af Amer 200, Est GFR (MDRD) Non-Af 166, BUN/Creatinine Ratio 20.8 H, Glucose 105, Calcium 8.3 L Diagnostic Data Foot X-Ray 11/05/20 16:27 IMPRESSION: 1. A pathologic horizontal fractures present through the proximal shaft of the proximal phalanx of the great toe due to cortical erosion and moderate intramedullary bony destruction in this region from active osteomyelitis. Electronically Signed: Alonzo Barker MD at 16:47 EDT , Service support , Forearm X-Ray 11/05/20 16:27 IMPRESSION: Normal x-ray examination of the radius and ulna. Electronically Signed: Alonzo Barker MD at 16:43 EDT , Service support , Wrist X-Ray 11/05/20 16:27 IMPRESSION: Mild to moderate soft tissue swelling Electronically Signed: Alonzo Barker MD at 16:56 EDT , Service support , Lower Extremity MRI 11/06/20 14:06 IMPRESSION: Fracture of the first proximal phalanx with no definitive MRI manifestations to suggest pathologic fracture from osteomyelitis. Fractures of the second metatarsal, fourth metatarsal, tibial sesamoid and second proximal phalangeal base. Bone edema of the second distal phalanx, third proximal phalanx, proximal and distal phalanges of the fifth toe, first metatarsal, third metatarsal and fifth metatarsal, more likely bone contusions rather than osteomyelitis. Partial tear of Lisfranc ligament. Intermetatarsal neuroma of the second webspace. Hematoma at the dorsal aspect of the forefoot, and edema in the subcutis adipose space. Electronically Signed: Diego Fabian MD at 10:42 EDT Tel , Service support , Soft Tissue Ultrasound 11/06/20 14:12 IMPRESSION: 2.2 cm left forearm abscess. Electronically Signed: Abdoulaye Laboy MD at 17:32 EDT Tel , Service support , Upper Extremity MRI 11/06/20 14:21 IMPRESSION: Edema in the subcutis adipose space of the forearm without demonstrated soft tissue abscess. Small effusion of the distal radioulnar joint. Electronically Signed: Diego Fabian MD at 10:16 EDT Tel , Service support , Current Medications Acetaminophen (Acetaminophen 325 Mg Tablet) 650 mg PO Q6H PRN PRN PRN Reason: Pain Score 1-10/Temp > 100.7 F Last Admin: 11/06/20 01:42 Dose: 650 mg Documented by: Celecoxib (Celecoxib 200 Mg Capsule) 200 mg PO BID [facility] Last Admin: 11/08/20 08:00 Dose: 200 mg Documented by: Diphenhydramine HCl (Diphenhydramine 50 Mg/Ml Syringe) 12.5 mg IV Q4H PRN PRN PRN Reason: ITCHING Last Admin: 11/08/20 00:43 Dose: 12.5 mg Documented by: Enoxaparin Sodium (Enoxaparin 40 Mg/0.4 Ml Syringe) 40 mg SC DAILY [facility] Last Admin: 11/08/20 08:01 Dose: 40 mg Documented by: Vancomycin IV Pharmacy to Dose (1 ea/ Sodium Chloride) 500 mls @ 250 mls/hr IV PRN PRN; Protocol PRN Reason: Rx to Dose Ampicillin Sodium/Sulbactam (Sodium 3 gm/ Sodium Chloride) 112 mls @ 150 mls/hr IV Q6 [facility] Last Infusion: 11/08/20 07:40 Dose: Infused Documented by: Lactated Ringer's () 1,000 mls @ 100 mls/hr IV .Q10H [facility] Last Infusion: 11/08/20 01:44 Dose: Infused Documented by: Vancomycin HCl 1,500 mg/ (Sodium Chloride) 530 mls @ 250 mls/hr IV Q8H [facility] Last Infusion: 11/08/20 05:06 Dose: Infused Documented by: L-Arginine/L-Glutamine/Calcium HMB (Ab (Unflavored) Packet) 1 packet PO BIDCM [facility] Last Admin: 11/08/20 08:00 Dose: 1 packet Documented by: Melatonin (Melatonin 3 Mg Tablet) 6 mg PO QHS [facility] Last Admin: 11/07/20 22:30 Dose: 6 mg Documented by: Morphine Sulfate (Morphine 4 Mg/Ml Syringe) 4 mg IV Q3H PRN PRN PRN Reason: Pain Score 6-10 Last Admin: 11/08/20 06:47 Dose: 4 mg Documented by: Nicotine (Nicotine 21 Mg Patch) 21 mg TD DAILY [facility] Last Admin: 11/08/20 08:09 Dose: 21 mg Documented by: Ondansetron HCl (Ondansetron 4 Mg/2 Ml Vial) 4 mg IV Q8H PRN PRN PRN Reason: NAUSEA/VOMITING Last Admin: 11/06/20 14:41 Dose: 4 mg Documented by: Oxycodone HCl (Oxycodone 5 Mg Tablet) 10 mg PO Q4H PRN PRN PRN Reason: Pain Score 6-10 Last Admin: 11/08/20 08:01 Dose: 10 mg Documented by: Sodium Chloride (0.9% Saline Lock 10 Ml Syringe) 10 - 40 ml IV UD PRN PRN Reason: SALINE FLUSH Last Admin: 11/08/20 06:47 Dose: 10 ml Documented by: Zolpidem Tartrate (Zolpidem Tartrate 5 Mg Tablet) 5 mg PO QHS PRN PRN PRN Reason: INSOMNIA Last Admin: 11/07/20 22:29 Dose: 5 mg Documented by: STROKE Vital Signs/Narrative: Vital Signs Temp Pulse Resp BP Pulse Ox 11/08/20 08:14 98.1 F 57 L 18 154/85 H 97 Medical Necessity - Tobacco Use Smoking Status: Current every day smoker Assessment/Plan All Active Problems Non-pressure chronic ulcer of other part of left foot with fat layer exposed (Acute) Non-pressure chronic ulcer of other part of right foot with fat layer exposed (Acute) Fracture of left great toe (Acute) Cellulitis of left foot (Acute) Fracture of metatarsal of left foot, closed (Acute) Abscess of left foot (Acute) #Cellulitis of the RUE and LUE due to IV drug injection MRI of LUE showed edema in the subcutaneous adipose space of the forearm without demonstrated soft tissue abscess. on IV vancomycin tylenol, celebrex and morphine prn for pain orthopedic surgery on board cellulitis resolving. Feels much better. now able to make a full fist with his right hand. #Left foot abscess it was initially thought he had osteomyelitis. However, MRI was negative for osteomyelitis on IV vancomycin. MRI of the left foot showed fracture of the first proximal phalanx with no definitive MRI manifestations to show osteomyelitis and bony edema of the second distal phalanx, third proximal phalanx and proximal and distal phalanges of the fifth toe, first and third as well as fifth metatarsals likely bone contusions rather than osteomyelitis and fractures of the second through fourth metatarsals and tibial sesamoid and proximal phalangeal base. There was also hematoma at the dorsal aspect of the foot and edema in the subcutaneous adipose space. today is POD 1 for debridement of left foot and right foot ulcerations with drainae of abscess of left foot. wound Cultures growing staph aureus. ID and podiatry on board. #Polysubstance abuse: Urine tox positive for amphetamines and cannabinoids. Serum alcohol level was less than 3. counseled to quit #DVT prophylaxis: lovenox Inpatient E&M: 72024 Subs Hosp L2
[2020-11-08] MEDS: Lactated Ringers 1,000 ML 100 ML IV (12:13)
[2020-11-08 12:23] LABS: Hep C Antibodies >11.0 s/co ratio (0.0-0.9)
--- NOTE | 2020-11-08 13:53 | PN.ID_ITS ---
Patient Problems: Active and Suspected Problems Non-pressure chronic ulcer of other part of left foot with fat layer exposed (Acute) Non-pressure chronic ulcer of other part of right foot with fat layer exposed (Acute) Fracture of left great toe (Acute) Cellulitis of left foot (Acute) Fracture of metatarsal of left foot, closed (Acute) Abscess of left foot (Acute) Subjective: Arms better, ROM much improved, foot is sore s/p OR. No fever. - Physical Exam Vitals/I&O's: Vital Signs Temp Pulse Resp BP Pulse Ox 98.1 F 57 L 18 154/85 H 97 11/08/20 08:14 11/08/20 08:14 11/08/20 08:14 11/08/20 08:14 11/08/20 08:14 Oxygen Delivery Method Room Air Weight: 94.7 kg Body Mass Index (BMI) 27.5 Intake and Output for Last 24 Hours 11/06/20 11/07/20 11/08/20 23:59 23:59 23:59 Intake Total 3653.25 / 4453.25 4286.33 / 4286.33 2054 / 2054 Output Total 2450 / 3050 4025 / 4025 600 / 600 Balance 1203.25 / 1403.25 261.33 / 261.33 1454 / 1454 General: Alert, Cooperative, No apparent distress Lungs: Clear to auscultation, Normal air movement Cardiovascular: Regular rate, Regular Rhythm Abdomen: Soft, Non Tender, Non-Distended Skin: Ulcer/ Wound - foot wrapped. Musculoskeletal: - - RUE improved movement and swelling in elbow and wrist Microbiology Past 72 Hours 11/07/20 Unknown Abs - Left Foot Gram Stain - Final 11/07/20 Unknown Abs - Left Foot Wound Culture - Preliminary Gram positive organism 11/05/20 16:50 Blood Culture (Wb) - Other Blood Culture - Preliminary No growth in 48 hours. 11/05/20 15:55 Blood Culture (Wb) - Arm Left Blood Culture - Preliminary No growth in 48 hours. 11/05/20 18:45 Exudate Gram Stain - Final 11/05/20 18:45 Exudate Wound Culture - Final Staphylococcus aureus 11/05/20 16:10 Mucosa - Nose SARS-CoV-2 Antigen (Rapid) - Final Laboratory Results 11/07/20 06:04: Hepatitis A IgM Ab Negative, Hep Bs Antigen Negative, Hep B Core IgM Ab Negative, Hepatitis C Ab (EIA) >11.0 H 11/07/20 17:57: Vancomycin Trough 7.7 11/08/20 06:04: WBC 10.9, RBC 4.47 L, Hgb 14.5, Hct 42.4, MCV 94.9 H, MCH 32.4 H , MCHC 34.2, RDW Std Deviation 40.6, RDW Coeff of Zahra 11.7, Plt Count 180, MPV 10.4, Immature Gran % (Auto) 0.300, Neut % (Auto) 78.8 H, Lymph % (Auto) 13.4 L, [place] % (Auto) 7.4, Eos % (Auto) 0.0, Baso % (Auto) 0.1, Absolute Neuts (auto) 8.6 H, Absolute Lymphs (auto) 1.46, Nucleated RBC % 0 11/08/20 06:04: Sodium 139, Potassium 4.2, Chloride 107, Carbon Dioxide 27.0, Anion Gap 5, BUN 12, Creatinine 0.58 L, Estim Creat Clear Calc 191.33, Est GFR (MDRD) Af Amer 200, Est GFR (MDRD) Non-Af 166, BUN/Creatinine Ratio 20.8 H, Glucose 105, Calcium 8.3 L Current Medications Acetaminophen (Acetaminophen 325 Mg Tablet) 650 mg PO Q6H PRN PRN PRN Reason: Pain Score 1-10/Temp > 100.7 F Last Admin: 11/06/20 01:42 Dose: 650 mg Documented by: Celecoxib (Celecoxib 200 Mg Capsule) 200 mg PO BID [facility] Last Admin: 11/08/20 08:00 Dose: 200 mg Documented by: Diphenhydramine HCl (Diphenhydramine 50 Mg/Ml Syringe) 12.5 mg IV Q4H PRN PRN PRN Reason: ITCHING Last Admin: 11/08/20 00:43 Dose: 12.5 mg Documented by: Enoxaparin Sodium (Enoxaparin 40 Mg/0.4 Ml Syringe) 40 mg SC DAILY [facility] Last Admin: 11/08/20 08:01 Dose: 40 mg Documented by: Vancomycin IV Pharmacy to Dose (1 ea/ Sodium Chloride) 500 mls @ 250 mls/hr IV PRN PRN; Protocol PRN Reason: Rx to Dose Ampicillin Sodium/Sulbactam (Sodium 3 gm/ Sodium Chloride) 112 mls @ 150 mls/hr IV Q6 [facility] Last Infusion: 11/08/20 07:40 Dose: Infused Documented by: Lactated Ringer's () 1,000 mls @ 100 mls/hr IV .Q10H [facility] Last Admin: 11/08/20 12:13 Dose: 100 mls/hr Documented by: Vancomycin HCl 1,500 mg/ (Sodium Chloride) 530 mls @ 250 mls/hr IV Q8H [facility] Last Admin: 11/08/20 12:10 Dose: 250 mls/hr Documented by: L-Arginine/L-Glutamine/Calcium HMB (Ab (Unflavored) Packet) 1 packet PO BIDCM [facility] Last Admin: 11/08/20 08:00 Dose: 1 packet Documented by: Melatonin (Melatonin 3 Mg Tablet) 6 mg PO QHS [facility] Last Admin: 11/07/20 22:30 Dose: 6 mg Documented by: Morphine Sulfate (Morphine 4 Mg/Ml Syringe) 4 mg IV Q3H PRN PRN PRN Reason: Pain Score 6-10 Last Admin: 11/08/20 12:16 Dose: 4 mg Documented by: Nicotine (Nicotine 21 Mg Patch) 21 mg TD DAILY [facility] Last Admin: 11/08/20 08:09 Dose: 21 mg Documented by: Ondansetron HCl (Ondansetron 4 Mg/2 Ml Vial) 4 mg IV Q8H PRN PRN PRN Reason: NAUSEA/VOMITING Last Admin: 11/06/20 14:41 Dose: 4 mg Documented by: Oxycodone HCl (Oxycodone 5 Mg Tablet) 10 mg PO Q4H PRN PRN PRN Reason: Pain Score 6-10 Last Admin: 11/08/20 12:10 Dose: 10 mg Documented by: Sodium Chloride (0.9% Saline Lock 10 Ml Syringe) 10 - 40 ml IV UD PRN PRN Reason: SALINE FLUSH Last Admin: 11/08/20 06:47 Dose: 10 ml Documented by: Zolpidem Tartrate (Zolpidem Tartrate 5 Mg Tablet) 5 mg PO QHS PRN PRN PRN Reason: INSOMNIA Last Admin: 11/07/20 22:29 Dose: 5 mg Documented by: Medical Necessity - Tobacco Use Smoking Status: Current every day smoker Route of nutrition/ use of supplements: [] Nutritional Intake: [] IV Site: [] Quinn Catheter: [] - Assessment/Plan Antibiotics: [] Assessment/Plan: [] Active and Suspected Problems Non-pressure chronic ulcer of other part of left foot with fat layer exposed (Acute) Non-pressure chronic ulcer of other part of right foot with fat layer exposed (Acute) Fracture of left great toe (Acute) Cellulitis of left foot (Acute) L foot trauma - podiatry following, debridement done by Dr. Storm 11/07/20 with pus debrided by no bone involvement seen in OR or on MRI. Wound cx with mssa. IVDU with suspected infected tendonitis of R elbow and wrist and abscess L forearm - ortho following. On vanc, unasyn. neg hiv and hep B. Has h/o cleared hep C per his report. Improving with medical therapy. Will follow, plan will be for discharge with po abx.
[2020-11-08 15:00] VITALS: BP 142/68; PULSE 63; RESP 16; TEMP 36.4; O2SAT 97
--- NOTE | 2020-11-08 15:50 | CASEMGMT ---
Social Work Note SW attempted to meet with pt, pt still soundly sleeping. SW will follow up with pt tomorrow to provide housing resources. Aditi Rodriguez TRUCK SUPERVISOR, BILLING ADMINISTRATOR
[2020-11-08 21:00] VITALS: BP 162/67; PULSE 92; RESP 16; TEMP 36.6; O2SAT 98
[2020-11-08] MEDS: MELATONIN 3 MG TABLET 6 MG PO (21:19)
[2020-11-08 22:00] VITALS: PULSE 82
[2020-11-09] MEDS: Morphine 4 MG/ML Syringe IV ×7 (01:14→22:37)
[2020-11-09] MEDS: DiphenhydrAMINE 50 MG/ML Syringe 12.5 MG IV (01:54)
--- NOTE | 2020-11-09 01:59 | NURSING ---
Pt unwrapped dressing on rt foot to itch. New drsg applied, Benadryl given for itching.
[2020-11-09 03:00] VITALS: BP 149/83; PULSE 63; RESP 16; TEMP 36.7; O2SAT 99
[2020-11-09 03:09] LABS: Absolute Lymphocyte Count 2.51 X10^3/uL (0.83-4.51); Absolute Neutrophil Count 6.1 X10^3/uL (2.0-7.7); Basophil# 0.04 X10^3/uL; Basophil% 0.4 % (0-1); Eosinophil# 0.03 X10^3/uL; Eosinophils% 0.3 % (0-5); Hematocrit 40.5 % (40-54); Hemoglobin 13.4 g/dL (13.0-16.5); Lymphocyte # 2.51 X10^3/ul (4.0); Lymphocyte % 26.6 % (19-41); Mean Corp Hgb Conc 33.1 g/dL (32-36); Mean Corpuscular Hgb 31.8 pg (27.0-32.0); Mean Platelet Vol. 10.4 fl (6.2-12.0); Monocyte# 0.74 X10^3/uL; Monocyte% 7.9 % (0-10); NRBC Flagged by Analyzer 0 % (0-5); Neutrophil # 6.07 X10^3/uL (2.7-7.7); Neutrophil % 64.5 % (47-70); Platelet Count 178 K/mm3 (150-450); RBC Distribution Width CV 12.1 % (11.6-14.6); RBC Distribution Width SD 42.2 fl (35.1-43.9); Red Blood Count 4.22 M/mm3 (4.6-6.2); White Blood Count 9.4 K/mm3 (4.4-11.0)
[2020-11-09 03:15] LABS: Vancomycin, Trough Level 14.3 ug/mL (5.0-15.0)
--- NOTE | 2020-11-09 03:22 | PCM.RX.CS ---
Consult Pharmacy has been consulted to manage selected antiobiotic: Vancomycin Type of Consult: Follow-up Labs: Vancomycin Trough 14.3 ug/mL (5.0-15.0) 11/09/20 02:50 Microbiology: Microbiology 11/07/20 Unknown Abs - Left Foot Gram Stain - Final 11/07/20 Unknown Abs - Left Foot Wound Culture - Preliminary Gram positive organism 11/05/20 16:50 Blood Culture (Wb) - Other Blood Culture - Preliminary No growth in 48 hours. 11/05/20 15:55 Blood Culture (Wb) - Arm Left Blood Culture - Preliminary No growth in 48 hours. 11/05/20 18:45 Exudate Gram Stain - Final 11/05/20 18:45 Exudate Wound Culture - Final Staphylococcus aureus 11/05/20 16:10 Mucosa - Nose SARS-CoV-2 Antigen (Rapid) - Final Goal Trough: 10-15 mcg/mL Pharmacy Plan for Drug Dosing: Pharmacy Service will continue to monitor and adjust dosing as required. TROUGH 14.2 NO CHANGES AT THIS TIME Follow-Up Labs: Trough Vancomycin Labs to be done on [date and time ordered]: 11/13 @ 2450
[2020-11-09 03:35] LABS: Anion Gap 6 (5-15); BUN 14 mg/dL (7-18); BUN/Creat Ratio 20.4 RATIO (10-20); Calcium,Total 7.9 mg/dL (8.5-10.1); Chloride 110 mmol/L (98-107); Creatinine, Serum 0.69 mg/dL (0.70-1.30); EST Glomerular Filtration Rate 136 mL/min (>60); Est Glom Filt Rate - Afr Amer 164 mL/min (>60); Estimated Creatinine Clearance 160.83 ml/min; Glucose 141 mg/dL (74-106); Potassium 3.6 mmol/L (3.5-5.1); Sodium Level 141 mmol/L (136-145)
[2020-11-09] MEDS: oxyCODONE 5 MG Tablet 10 MG PO ×2 (03:41→09:17)
[2020-11-09] MEDS: Lactated Ringers 1,000 ML 100 ML IV (04:57)
[2020-11-09 08:56] VITALS: BP 142/76; PULSE 56; RESP 18; TEMP 36.6; O2SAT 100
[2020-11-09 09:00] VITALS: PULSE 60
[2020-11-09] MEDS: Enoxaparin 40 MG/0.4 ML Syringe SC (09:14)
[2020-11-09] MEDS: Celecoxib 200 MG Capsule PO ×2 (09:15→22:30)
--- NOTE | 2020-11-09 09:24 | NURSING ---
Pt asked for nurse to wake him for pain meds. Nurse informed him that this is not an option in that it could an overdose. He said, I want a different nurse, and get of here, I am about to get very rude. Get out of here. this was reported to charge nurse and she called security.
--- NOTE | 2020-11-09 09:35 | DCINST_ITS ---
Discharge Activity: Use Walker, Use Crutches, - - NWB left foot Weight Bearing Status: No weight bearing - left foot Keep extremity elevated above heart level: Left Leg Additional Activity Instructions:: Nonweightbearing to left foot with Cam boot and dressings intact Call your doctor if your incision/area has: Increased Pain/ Swelling, Increased Redness, Foul Smelling Discharge Call your doctor if you observe: Fever of 101 or Higher, Shortness of breath, Dizziness, Fainting spells, Chest pain, Calf discomfort, Uncontrolled pain Additional Dressing/Incision Instructions:: Clean wound with soap and water pat dry. Please Adaptic over wounds to top of left foot covered by silver alginate. Place hydrogel over wounds to right foot and left big toe and cover with Adaptic. Cover both sites both feet with 4 x 4's, Kerlix, Jonh wrap. This is to be done daily Allergies/Adverse Reactions: Allergies acetaminophen [From Vicodin] Adverse Reaction (Verified 11/05/20 15:29) Upset Stomach hydrocodone bitartrate [From Vicodin] Adverse Reaction (Verified 11/05/20 15:29) Upset Stomach ketorolac tromethamine [From Toradol] Adverse Reaction (Verified 11/05/20 15:29) Other Medications to take at Discharge No Known/Unobtainable [No Known Home Medications] 10/25/14 Primary Care Physician: Care Physician,No Primary [Primary Care Provider] - Test Results: Test results from this visit will be discussed in further detail at your follow- up appointment, if applicable. Please Follow Up With: Mitzy Storm DPM When: 1 week at the wound care center
--- NOTE | 2020-11-09 09:39 | PN_ITS ---
Patient Problems: Active and Suspected Problems Non-pressure chronic ulcer of other part of left foot with fat layer exposed (Acute) Non-pressure chronic ulcer of other part of right foot with fat layer exposed (Acute) Fracture of left great toe (Acute) Cellulitis of left foot (Acute) Fracture of metatarsal of left foot, closed (Acute) Abscess of left foot (Acute) Subjective: Patient seen and examined resting comfortably. Patient denies any new pedal complaints. Patient denies any nausea, fever, chills, chest pain, shortness of breath, cough, streaking, purulence, vomiting. Patient's pain is well controlled with pain meds. - Physical Exam Vitals/I&O's: Vital Signs Temp Pulse Resp BP Pulse Ox 97.8 F 60 18 142/76 H 100 11/09/20 08:56 11/09/20 09:00 11/09/20 08:56 11/09/20 08:56 11/09/20 08:56 Oxygen Delivery Method Room Air Weight: 94.7 kg Body Mass Index (BMI) 27.5 Intake and Output for Last 24 Hours 11/07/20 11/08/20 11/09/20 23:59 23:59 23:59 Intake Total 4286.33 / 4286.33 5038 / 5038 1977.33 / 1977.33 Output Total 4025 / 4025 2200 / 2200 850 / 850 Balance 261.33 / 261.33 2838 / 2838 1127.33 / 1127.33 General: Alert, Oriented x3 HEENT: Atraumatic Extremities: No clubbing, No cyanosis, Capillary Refill Less than 3 Seconds, No Calf Tenderness, Edema - Edema and erythema to left foot is significantly improved, Peripheral Pulses Normal, Tenderness - To ulceration site and diffuse left foot over fracture sites Skin: Ulcer/ Wound - Left foot wounds. Decreasing erythema and edema noted. Pain to palpation, granular base, serous sanguinous drainage, does not probe, signs of infection improving. Right foot wound stable with signs of improving without signs of infection. Musculoskeletal: Tenderness - Diffuse left foot over fracture sites and to palpation of ulceration sites bilateral feet Neurological: Sensory exam intact to light touch and pain - Complains of some altered sensation to left great toe light touch is intact. Psych/Mental Status: Normal Affect, Appropriate Microbiology Past 72 Hours 11/07/20 Unknown Abs - Left Foot Gram Stain - Final 11/07/20 Unknown Abs - Left Foot Wound Culture - Preliminary Gram positive organism 11/07/20 Unknown Abs - Left Foot Anaerobic Culture - Preliminary Checking for anaerobes, further studies to follow. 11/05/20 16:50 Blood Culture (Wb) - Other Blood Culture - Preliminary No growth in 48 hours. 11/05/20 15:55 Blood Culture (Wb) - Arm Left Blood Culture - Preliminary No growth in 48 hours. 11/05/20 18:45 Exudate Gram Stain - Final 11/05/20 18:45 Exudate Wound Culture - Final Staphylococcus aureus Laboratory Results 11/07/20 06:04: Hepatitis A IgM Ab Negative, Hep Bs Antigen Negative, Hep B Core IgM Ab Negative, Hepatitis C Ab (EIA) >11.0 H 11/09/20 02:40: WBC 9.4, RBC 4.22 L, Hgb 13.4, Hct 40.5, MCV 96.0 H, MCH 31.8, MCHC 33.1, RDW Std Deviation 42.2, RDW Coeff of Zahra 12.1, Plt Count 178, MPV 10.4, Immature Gran % (Auto) 0.300, Neut % (Auto) 64.5, Lymph % (Auto) 26.6, Cedar % (Auto) 7.9, Eos % (Auto) 0.3, Baso % (Auto) 0.4, Absolute Neuts (auto) 6.1, Absolute Lymphs (auto) 2.51, Nucleated RBC % 0 11/09/20 02:40: Sodium 141, Potassium 3.6, Chloride 110 H, Carbon Dioxide 25.0, Anion Gap 6, BUN 14, Creatinine 0.69 L, Estim Creat Clear Calc 160.83, Est GFR (MDRD) Af Amer 164, Est GFR (MDRD) Non-Af 136, BUN/Creatinine Ratio 20.4 H, Glucose 141 H, Calcium 7.9 L 11/09/20 02:50: Vancomycin Trough 14.3 Current Medications Acetaminophen (Acetaminophen 325 Mg Tablet) 650 mg PO Q6H PRN PRN PRN Reason: Pain Score 1-10/Temp > 100.7 F Last Admin: 11/06/20 01:42 Dose: 650 mg Documented by: Celecoxib (Celecoxib 200 Mg Capsule) 200 mg PO BID JENANE Last Admin: 11/09/20 09:15 Dose: 200 mg Documented by: Diphenhydramine HCl (Diphenhydramine 50 Mg/Ml Syringe) 12.5 mg IV Q4H PRN PRN PRN Reason: ITCHING Last Admin: 11/09/20 01:54 Dose: 12.5 mg Documented by: Enoxaparin Sodium (Enoxaparin 40 Mg/0.4 Ml Syringe) 40 mg SC DAILY [facility] Last Admin: 11/09/20 09:14 Dose: 40 mg Documented by: Vancomycin IV Pharmacy to Dose (1 ea/ Sodium Chloride) 500 mls @ 250 mls/hr IV PRN PRN; Protocol PRN Reason: Rx to Dose Ampicillin Sodium/Sulbactam (Sodium 3 gm/ Sodium Chloride) 112 mls @ 150 mls/hr IV Q6 [facility] [place] Last Infusion: 11/09/20 07:30 Dose: Infused Documented by: Lactated Ringer's () 1,000 mls @ 100 mls/hr IV .Q10H [facility] [place] Last Admin: 11/09/20 04:57 Dose: 100 mls/hr Documented by: Vancomycin HCl 1,500 mg/ (Sodium Chloride) 530 mls @ 250 mls/hr IV Q8H [facility] [place] Last Infusion: 11/09/20 05:53 Dose: Infused Documented by: L-Arginine/L-Glutamine/Calcium HMB (Ab (Unflavored) Packet) 1 packet PO BIDCM [facility] [place] Last Admin: 11/09/20 09:19 Dose: Not Given Documented by: Melatonin (Melatonin 3 Mg Tablet) 6 mg PO QHS [facility] [place] Last Admin: 11/08/20 21:19 Dose: 6 mg Documented by: Morphine Sulfate (Morphine 4 Mg/Ml Syringe) 4 mg IV Q3H PRN PRN PRN Reason: Pain Score 6-10 Last Admin: 11/09/20 07:20 Dose: 4 mg Documented by: Nicotine (Nicotine 21 Mg Patch) 21 mg TD DAILY [facility] [place] Last Admin: 11/09/20 09:14 Dose: 21 mg Documented by: Ondansetron HCl (Ondansetron 4 Mg/2 Ml Vial) 4 mg IV Q8H PRN PRN PRN Reason: NAUSEA/VOMITING Last Admin: 11/06/20 14:41 Dose: 4 mg Documented by: Oxycodone HCl (Oxycodone 5 Mg Tablet) 10 mg PO Q4H PRN PRN PRN Reason: Pain Score 6-10 Last Admin: 11/09/20 09:17 Dose: 10 mg Documented by: Sodium Chloride (0.9% Saline Lock 10 Ml Syringe) 10 - 40 ml IV UD PRN PRN Reason: SALINE FLUSH Last Admin: 11/08/20 18:26 Dose: 10 ml Documented by: Zolpidem Tartrate (Zolpidem Tartrate 5 Mg Tablet) 5 mg PO QHS PRN PRN PRN Reason: INSOMNIA Last Admin: 11/07/20 22:29 Dose: 5 mg Documented by: Medical Necessity - Tobacco Use Smoking Status: Current every day smoker Assessment/Plan All Active Problems Non-pressure chronic ulcer of other part of left foot with fat layer exposed (Acute) Non-pressure chronic ulcer of other part of right foot with fat layer exposed (Acute) Fracture of left great toe (Acute) Cellulitis of left foot (Acute) Fracture of metatarsal of left foot, closed (Acute) Abscess of left foot (Acute) Left foot ulcerations s/p debridement 11/07/20 Right foot ulcer s/p debridement 11/07/20 Left foot fracture: hallux proximal phalanx, 2nd metatarsal, 4th metatarsal, 2nd proximal phalanx, tibial sesamoid 2/2 crush injury Cellulitis left foot History of IV drug abuse Cellulitis to bilateral arms Patient seen and examined bedside with nursing present Patient noted to have wounds to bilateral lower extremities. Neither of these p robe to bone. There is low clinical suspicion of osteomyelitis. An abscess was drained in surgery 11/07/2020 to dorsal left foot. As well as wound debridements. WBC 9.4, ESR 22, CRP 22, toxicology screen positive for amphetamines and cannabis Blood cultures are showing no growth to date and wound cultures are growing staph aureus. X-rays were obtained. Showed horizontal fracture of the left hallux proximal phalanx,2nd metatarsal base, and 4th metatarsal neck. No soft tissue emphysema noted. MRI showed 1. Fracture of the first proximal phalanx with no definitive MRI manifestations to suggest pathologic fracture from osteomyelitis. 2. Fractures of the second metatarsal, fourth metatarsal, tibial sesamoid and second proximal phalangeal base. 3. Bone edema of the second distal phalanx, third proximal phalanx, proximal and distal phalanges of the fifth toe, first metatarsal, third metatarsal and fifth metatarsal, more likely bone contusions rather than osteomyelitis. 4. Partial tear of Lisfranc ligament. 5. Intermetatarsal neuroma of the second webspace. 6. Hematoma at the dorsal aspect of the forefoot, and edema in the subcutis adipose space. Reviewed the MRI and XR results with the patient. Discussed that the metatarsal fractures are nondisplaced. Discussed that these didn't need to undergo surgery, but he would need to be NWB to allow them to heal where they are. Dressing changed. Again reiterated to the patient how important it is for infection control and wound healing to keep foot dressing intact. Patient relates that he will be compliant. Continue wound care to feet daily. Continue antibiotics per ID Strict NWB left foot. Will likely need CAM boot to protect fracture sites prior to discharge as well as Rx for assistive device. Would appreciate PT input as to what would be most appropriate. Patient has been refusing to work with PT. Discussed this with patient. He reiterates that he knows how to use crutches and walkers and doesn't need their help. Patient has also been refusing to talk with case management/social work. Reieterated that these people are just trying to help. Patient relates he doesn't want to talk to them. CAM boot and crutches ordered Continue wound care. Patient will need continued wound care in order to heal up the wound to his bilateral feet. He would likely benefit from following up with the wound care center with me 1 week after discharge. He will need dressing supplies. Please contact if any questions or concerns Mitzy Storm DPM [facility] [phone]
--- NOTE | 2020-11-09 09:54 | NURSING ---
security called and requested they be on standby when physician rounds with nurse. Discussed with primary RN Jose patient medications, conversation and esculation of patient's behavior/verbal usage with primary RN Jose after she told patient she could not wake him up to give him additional pain medication as for safety reasons.
--- NOTE | 2020-11-09 10:00 | PN.ID_ITS ---
Patient Problems: Active and Suspected Problems Non-pressure chronic ulcer of other part of left foot with fat layer exposed (Acute) Non-pressure chronic ulcer of other part of right foot with fat layer exposed (Acute) Fracture of left great toe (Acute) Cellulitis of left foot (Acute) Fracture of metatarsal of left foot, closed (Acute) Abscess of left foot (Acute) Subjective: Feeling better, no fever, no n/v/d, wrist ROM much improved - Physical Exam Vitals/I&O's: Vital Signs Temp Pulse Resp BP Pulse Ox 97.8 F 60 18 142/76 H 100 11/09/20 08:56 11/09/20 09:00 11/09/20 08:56 11/09/20 08:56 11/09/20 08:56 Oxygen Delivery Method Room Air Weight: 94.7 kg Body Mass Index (BMI) 27.5 Intake and Output for Last 24 Hours 11/07/20 11/08/20 11/09/20 23:59 23:59 23:59 Intake Total 4286.33 / 4286.33 5038 / 5038 1976.33 / 1976.33 Output Total 4025 / 4025 2200 / 2200 850 / 850 Balance 261.33 / 261.33 2838 / 2838 1127.33 / 1127.33 General: Alert, Cooperative, No apparent distress Lungs: Clear to auscultation, Normal air movement Cardiovascular: Regular rate, Regular Rhythm Abdomen: Soft, Non Tender, Non-Distended Skin: No rashes - small area of fluctuance L forearm, reviewed photos of L foot, RUE much improved swelling and ROM Microbiology Past 72 Hours 11/07/20 Unknown Abs - Left Foot Gram Stain - Final 11/07/20 Unknown Abs - Left Foot Wound Culture - Preliminary Gram positive organism 11/07/20 Unknown Abs - Left Foot Anaerobic Culture - Preliminary Checking for anaerobes, further studies to follow. 11/05/20 16:50 Blood Culture (Wb) - Other Blood Culture - Preliminary No growth in 48 hours. 11/05/20 15:55 Blood Culture (Wb) - Arm Left Blood Culture - Preliminary No growth in 48 hours. 11/05/20 18:45 Exudate Gram Stain - Final 11/05/20 18:45 Exudate Wound Culture - Final Staphylococcus aureus Laboratory Results 11/07/20 06:04: Hepatitis A IgM Ab Negative, Hep Bs Antigen Negative, Hep B Core IgM Ab Negative, Hepatitis C Ab (EIA) >11.0 H 11/09/20 02:40: WBC 9.4, RBC 4.22 L, Hgb 13.4, Hct 40.5, MCV 96.0 H, MCH 31.8, MCHC 33.1, RDW Std Deviation 42.2, RDW Coeff of Zahra 12.1, Plt Count 178, MPV 10.4, Immature Gran % (Auto) 0.300, Neut % (Auto) 64.5, Lymph % (Auto) 26.6, Harding % (Auto) 7.9, Eos % (Auto) 0.3, Baso % (Auto) 0.4, Absolute Neuts (auto) 6.1, Absolute Lymphs (auto) 2.51, Nucleated RBC % 0 11/09/20 02:40: Sodium 141, Potassium 3.6, Chloride 110 H, Carbon Dioxide 25.0, Anion Gap 6, BUN 14, Creatinine 0.69 L, Estim Creat Clear Calc 160.83, Est GFR (MDRD) Af Amer 164, Est GFR (MDRD) Non-Af 136, BUN/Creatinine Ratio 20.4 H, Glucose 141 H, Calcium 7.9 L 11/09/20 02:50: Vancomycin Trough 14.3 Current Medications Acetaminophen (Acetaminophen 325 Mg Tablet) 650 mg PO Q6H PRN PRN PRN Reason: Pain Score 1-10/Temp > 100.7 F Last Admin: 11/06/20 01:42 Dose: 650 mg Documented by: Celecoxib (Celecoxib 200 Mg Capsule) 200 mg PO BID [facility] Last Admin: 11/09/20 09:15 Dose: 200 mg Documented by: Diphenhydramine HCl (Diphenhydramine 50 Mg/Ml Syringe) 12.5 mg IV Q4H PRN PRN PRN Reason: ITCHING Last Admin: 11/09/20 01:54 Dose: 12.5 mg Documented by: Enoxaparin Sodium (Enoxaparin 40 Mg/0.4 Ml Syringe) 40 mg SC DAILY [facility] Last Admin: 11/09/20 09:14 Dose: 40 mg Documented by: Vancomycin IV Pharmacy to Dose (1 ea/ Sodium Chloride) 500 mls @ 250 mls/hr IV PRN PRN; Protocol PRN Reason: Rx to Dose Ampicillin Sodium/Sulbactam (Sodium 3 gm/ Sodium Chloride) 112 mls @ 150 mls/hr IV Q6 [facility] Last Infusion: 11/09/20 07:30 Dose: Infused Documented by: Lactated Ringer's () 1,000 mls @ 100 mls/hr IV .Q10H [facility] Last Admin: 11/09/20 04:57 Dose: 100 mls/hr Documented by: Vancomycin HCl 1,500 mg/ (Sodium Chloride) 530 mls @ 250 mls/hr IV Q8H [facility] Last Infusion: 11/09/20 05:53 Dose: Infused Documented by: L-Arginine/L-Glutamine/Calcium HMB (Ab (Unflavored) Packet) 1 packet PO BIDCM [facility] Last Admin: 11/09/20 09:19 Dose: Not Given Documented by: Melatonin (Melatonin 3 Mg Tablet) 6 mg PO QHS [facility] Last Admin: 11/08/20 21:19 Dose: 6 mg Documented by: Morphine Sulfate (Morphine 4 Mg/Ml Syringe) 4 mg IV Q3H PRN PRN PRN Reason: Pain Score 6-10 Last Admin: 11/09/20 07:20 Dose: 4 mg Documented by: Nicotine (Nicotine 21 Mg Patch) 21 mg TD DAILY [facility] Last Admin: 11/09/20 09:14 Dose: 21 mg Documented by: Ondansetron HCl (Ondansetron 4 Mg/2 Ml Vial) 4 mg IV Q8H PRN PRN PRN Reason: NAUSEA/VOMITING Last Admin: 11/06/20 14:41 Dose: 4 mg Documented by: Oxycodone HCl (Oxycodone 5 Mg Tablet) 10 mg PO Q4H PRN PRN PRN Reason: Pain Score 6-10 Last Admin: 11/09/20 09:17 Dose: 10 mg Documented by: Sodium Chloride (0.9% Saline Lock 10 Ml Syringe) 10 - 40 ml IV UD PRN PRN Reason: SALINE FLUSH Last Admin: 11/08/20 18:26 Dose: 10 ml Documented by: Zolpidem Tartrate (Zolpidem Tartrate 5 Mg Tablet) 5 mg PO QHS PRN PRN PRN Reason: INSOMNIA Last Admin: 11/07/20 22:29 Dose: 5 mg Documented by: Medical Necessity - Tobacco Use Smoking Status: Current every day smoker Route of nutrition/ use of supplements: [] Nutritional Intake: [] IV Site: [] Quinn Catheter: [] - Assessment/Plan Antibiotics: [] Assessment/Plan: [] Active and Suspected Problems Non-pressure chronic ulcer of other part of left foot with fat layer exposed (Acute) Non-pressure chronic ulcer of other part of right foot with fat layer exposed (Acute) Fracture of left great toe (Acute) Cellulitis of left foot (Acute) L foot trauma - podiatry following, debridement done by Dr. Storm 11/07/20 with pus debrided by no bone involvement seen in OR or on MRI. Wound cx with mssa. IVDU with suspected infected tendonitis of R elbow and wrist and abscess L forearm - ortho following. On vanc, unasyn. neg hiv and hep B. Has h/o cleared hep C per his report. Improving with medical therapy. Will follow, plan will be for discharge with 10 days of po bactrim DS 1 tab bid and augmentin 875mg bid.
--- NOTE | 2020-11-09 10:18 | NURSING ---
Krystal Perez RN in room talking to pt, with security by the door. Pt is upset because he was informed that nursing staff would not wake him up to give him his prn meds. Dr Sanders calmly explained this is against policy.
--- NOTE | 2020-11-09 10:24 | NURSING ---
rounded with Dr. Sanders, Primary RN Jose with security outside of room if needed. Patient verbally esculating with primary RN's presence, pt verbalized personality conflict but also verbalized upset that Primary RN Jose told him she would not be waking him up to give him additional pain medication. Dr. Sanders lead converstaion. Discussed patient safety in regards to pain medication. Pt requested new nurse. Erika DUNHAM called to room as new nurse. Expectations, pain medication, and safety again discussed w/ patient/Dr. Sanders/ this nurses/ Erika DUNHAM/ and Mitzy DUNHAM
[2020-11-09] MEDS: 0.9% Saline Lock 10 ML Syringe IV ×4 (11:00→22:37)
[2020-11-09] MEDS: Acetaminophen 325 MG Tablet 650 MG PO (11:00)
[2020-11-09] MEDS: morphine SR 15 MG Tablet PO ×2 (12:14→23:38)
[2020-11-09 14:06] LABS: Vitamin D 1,25-Dihydroxy 32.6 pg/mL (19.9-79.3)
--- NOTE | 2020-11-09 14:22 | CASEMGMT ---
Social Work Note SW in to speak with pt. SW introduced self and role at [facility]. Pt is alert and orientated. SW asked pt if he wanted any housing resources and pt denied. Per previous conversation with RN REMA, pt also denied wanting substance use resources. Pt denied additional needs or concerns at this time. Aditi Rodriguez MANAGER MEDICARE, [employer]ER MACHINE OPERATOR
--- NOTE | 2020-11-09 15:00 | PN_ITS ---
Patient Problems: Active and Suspected Problems Non-pressure chronic ulcer of other part of left foot with fat layer exposed (Acute) Non-pressure chronic ulcer of other part of right foot with fat layer exposed (Acute) Fracture of left great toe (Acute) Cellulitis of left foot (Acute) Fracture of metatarsal of left foot, closed (Acute) Abscess of left foot (Acute) Subjective: Patient seen and examined. He was very angry this morning, because his nurse wouldnt wake him up to give him his pain meds. I had to meet with the patient together with the charge nurse, and sought to calm him down. He agreed to have his pain meds adjusted. Review of systems was otherwise negative. Vitals/I&O's: Vital Signs Temp Pulse Resp BP Pulse Ox 97.8 F 60 18 142/76 H 100 11/09/20 08:56 11/09/20 09:00 11/09/20 08:56 11/09/20 08:56 11/09/20 08:56 Oxygen Delivery Method Room Air Weight: 208 lb 12.444 oz Body Mass Index (BMI) 27.5 Intake and Output for Last 24 Hours 11/07/20 11/08/20 11/09/20 23:59 23:59 23:59 Intake Total 4286.33 / 4286.33 5038 / 5038 2594.00 / 2594.00 Output Total 4025 / 4025 2200 / 2200 1375 / 1375 Balance 261.33 / 261.33 2838 / 2838 1219.00 / 1219.00 General: Alert, Oriented x3, Cooperative, No apparent distress HEENT: Atraumatic, PERRLA, EOMI, Normocephalic Oral: Dry Mucosa Neck: Supple, No JVD, Negative Carotid Bruits Lungs: Clear to auscultation, Normal air movement, No rhonchi, No wheeze, No rales Cardiovascular: Regular rate, No murmurs Abdomen: Bowel Sounds Present, Soft, Non Tender Extremities: No clubbing, No cyanosis, No edema, Capillary Refill Less than 3 Seconds Skin: - - left foot is wrapped in bandage Musculoskeletal: - - redness of RUE has improved, swelling over left posterior foream is minimally tender. Neurological: Cranial nerves II-XII grossly intact, Neuro grossly intact, Motor Exam 5/5 strength throughout Psych/Mental Status: Normal Affect, Appropriate, Alert and oriented to time, place, person, mood and affect Microbiology Past 72 Hours 11/07/20 Unknown Abs - Left Foot Gram Stain - Final 11/07/20 Unknown Abs - Left Foot Wound Culture - Preliminary Staphylococcus aureus Alpha Hemolytic Streptococcus Coag Negative Staph 11/07/20 Unknown Abs - Left Foot Anaerobic Culture - Preliminary Checking for anaerobes, further studies to follow. 11/05/20 16:50 Blood Culture (Wb) - Other Blood Culture - Preliminary No growth in 48 hours. 11/05/20 15:55 Blood Culture (Wb) - Arm Left Blood Culture - Preliminary No growth in 48 hours. 11/05/20 18:45 Exudate Gram Stain - Final 11/05/20 18:45 Exudate Wound Culture - Final Staphylococcus aureus Laboratory Results 11/07/20 06:04: Vit D 1,25-Dihydroxy 32.6 11/09/20 02:40: WBC 9.4, RBC 4.22 L, Hgb 13.4, Hct 40.5, MCV 96.0 H, MCH 31.8, MCHC 33.1, RDW Std Deviation 42.2, RDW Coeff of Zahra 12.1, Plt Count 178, MPV 10.4, Immature Gran % (Auto) 0.300, Neut % (Auto) 64.5, Lymph % (Auto) 26.6, [place] % (Auto) 7.9, Eos % (Auto) 0.3, Baso % (Auto) 0.4, Absolute Neuts (auto) 6.1, Absolute Lymphs (auto) 2.51, Nucleated RBC % 0 11/09/20 02:40: Sodium 141, Potassium 3.6, Chloride 110 H, Carbon Dioxide 25.0, Anion Gap 6, BUN 14, Creatinine 0.69 L, Estim Creat Clear Calc 160.83, Est GFR (MDRD) Af Amer 164, Est GFR (MDRD) Non-Af 136, BUN/Creatinine Ratio 20.4 H, Glucose 141 H, Calcium 7.9 L 11/09/20 02:50: Vancomycin Trough 14.3 Current Medications Acetaminophen (Acetaminophen 325 Mg Tablet) 650 mg PO Q6H PRN PRN PRN Reason: Pain Score 1-10/Temp > 100.7 F Last Admin: 11/09/20 11:00 Dose: 650 mg Documented by: Celecoxib (Celecoxib 200 Mg Capsule) 200 mg PO BID [facility] Last Admin: 11/09/20 09:15 Dose: 200 mg Documented by: Diphenhydramine HCl (Diphenhydramine 50 Mg/Ml Syringe) 12.5 mg IV Q4H PRN PRN PRN Reason: ITCHING Last Admin: 11/09/20 01:54 Dose: 12.5 mg Documented by: Enoxaparin Sodium (Enoxaparin 40 Mg/0.4 Ml Syringe) 40 mg SC DAILY [facility] Last Admin: 11/09/20 09:14 Dose: 40 mg Documented by: Vancomycin IV Pharmacy to Dose (1 ea/ Sodium Chloride) 500 mls @ 250 mls/hr IV PRN PRN; Protocol PRN Reason: Rx to Dose Ampicillin Sodium/Sulbactam (Sodium 3 gm/ Sodium Chloride) 112 mls @ 150 mls/hr IV Q6 [facility] Last Admin: 11/09/20 13:14 Dose: 150 mls/hr Documented by: Vancomycin HCl 1,500 mg/ (Sodium Chloride) 530 mls @ 250 mls/hr IV Q8H [facility] Last Admin: 11/09/20 11:00 Dose: 250 mls/hr Documented by: Sodium Chloride () 250 mls @ 15 mls/hr IV .[id number] PRN PRN Reason: Saline Flush Sodium Chloride () 250 mls @ 15 mls/hr IV .[id number] PRN PRN Reason: Additional IVPB Infusion L-Arginine/L-Glutamine/Calcium HMB (Ab (Unflavored) Packet) 1 packet PO BIDCM [facility] Last Admin: 11/09/20 09:19 Dose: Not Given Documented by: Melatonin (Melatonin 3 Mg Tablet) 6 mg PO QHS [facility] Last Admin: 11/08/20 21:19 Dose: 6 mg Documented by: Morphine Sulfate (Morphine 4 Mg/Ml Syringe) 4 mg IV Q3H PRN PRN PRN Reason: Pain Score 6-10 Last Admin: 11/09/20 11:00 Dose: 4 mg Documented by: Morphine Sulfate (Morphine Sr 15 Mg Tablet) 15 mg PO BID [facility] Last Admin: 11/09/20 12:14 Dose: 15 mg Documented by: Nicotine (Nicotine 21 Mg Patch) 21 mg TD DAILY [facility] Last Admin: 11/09/20 09:14 Dose: 21 mg Documented by: Ondansetron HCl (Ondansetron 4 Mg/2 Ml Vial) 4 mg IV Q8H PRN PRN PRN Reason: NAUSEA/VOMITING Last Admin: 11/06/20 14:41 Dose: 4 mg Documented by: Sodium Chloride (0.9% Saline Lock 10 Ml Syringe) 10 - 40 ml IV UD PRN PRN Reason: SALINE FLUSH Last Admin: 11/09/20 11:00 Dose: 10 ml Documented by: Zolpidem Tartrate (Zolpidem Tartrate 5 Mg Tablet) 5 mg PO QHS PRN PRN PRN Reason: INSOMNIA Last Admin: 11/07/20 22:29 Dose: 5 mg Documented by: Medical Necessity - Tobacco Use Smoking Status: Current every day smoker Assessment/Plan All Active Problems Non-pressure chronic ulcer of other part of left foot with fat layer exposed (Acute) Non-pressure chronic ulcer of other part of right foot with fat layer exposed (Acute) Fracture of left great toe (Acute) Cellulitis of left foot (Acute) Fracture of metatarsal of left foot, closed (Acute) Abscess of left foot (Acute) #Cellulitis of the RUE and LUE due to IV drug injection * MRI of LUE showed edema in the subcutaneous adipose space of the forearm without demonstrated soft tissue abscess. * on IV unasyn and vancomycin * tylenol, celebrex and morphine prn for pain; will dc oxycodone and put him on MS contin 15mg bid. * orthopedic surgery on board * cellulitis resolves. Much better * #Left foot abscess * it was initially thought he had osteomyelitis. However, MRI was negative for osteomyelitis * on IV vancomycin. * MRI of the left foot showed fracture of the first proximal phalanx with no definitive MRI manifestations to show osteomyelitis and bony edema of the second distal phalanx, third proximal phalanx and proximal and distal phalanges of the fifth toe, first and third as well as fifth metatarsals likely bone contusions rather than osteomyelitis and fractures of the second through fourth metatarsals and tibial sesamoid and proximal phalangeal base. There was also hematoma at the dorsal aspect of the foot and edema in the subcutaneous adipose space. * today is POD 2 for debridement of left foot and right foot ulcerations with drainae of abscess of left foot. * wound Cultures growing staph aureus. ID and podiatry on board. * #Polysubstance abuse: * Urine tox positive for amphetamines and cannabinoids. * Serum alcohol level was less than 3. * counseled to quit * #DVT prophylaxis: lovenox Inpatient E&M: 49291 Subs Hosp L2
[2020-11-09 15:16] VITALS: BP 162/98; PULSE 55; RESP 16; TEMP 36.3; O2SAT 100
--- NOTE | 2020-11-09 15:24 | NURSING ---
PRN med given slow IVP over 2 minutes via tubing of IVF @ [facility]- within a few seconds pt states Oh, i can feel it going in, it is helping so much. female visitor at bedside, pt states i feel so much better when she is here, i actually got a little bit of sleep.
[2020-11-09 20:56] VITALS: BP 159/78; PULSE 55; RESP 16; TEMP 36.6; O2SAT 100
[2020-11-09] MEDS: MELATONIN 3 MG TABLET 6 MG PO (22:30)
[2020-11-10 03:29] VITALS: BP 130/69; PULSE 60; RESP 16; TEMP 36.5; O2SAT 100
[2020-11-10] MEDS: 0.9% Saline Lock 10 ML Syringe IV (03:35)
[2020-11-10] MEDS: Morphine 4 MG/ML Syringe IV ×3 (03:36→11:39)
--- NOTE | 2020-11-10 05:58 | NURSING ---
pt very upset. pt yelling and using foul language. pt angry that he was woken up for lab work. pt continually states how mad he is. pt tossed call light on the floor and states he will push the call light every 10 minutes so he can tell us how upset he is. pt asked for morphine. informed pt that he can't have it until 646. pt asks this rn to wake him for his pain meds. this rn stated that would not be done. Systems Manager and other rn's came in the room. pt continues to yell and states everyone should leave the room because he can't get out of bed to do anything.
[2020-11-10 06:07] LABS: Absolute Lymphocyte Count 2.69 X10^3/uL (0.83-4.51); Basophil# 0.04 X10^3/uL; Basophil% 0.6 % (0-1); Eosinophil# 0.13 X10^3/uL; Hematocrit 44.3 % (40-54); Hemoglobin 14.7 g/dL (13.0-16.5); Lymphocyte # 2.69 X10^3/ul (4.0); Lymphocyte % 42.2 % (19-41); Mean Corp Hgb Conc 33.2 g/dL (32-36); Mean Corpuscular Hgb 31.7 pg (27.0-32.0); Mean Corpuscular Volume 95.5 fL (80-94); Mean Platelet Vol. 10.2 fl (6.2-12.0); Monocyte# 0.51 X10^3/uL; NRBC Flagged by Analyzer 0 % (0-5); Neutrophil # 2.95 X10^3/uL (2.7-7.7); Neutrophil % 46.3 % (47-70); Platelet Count 193 K/mm3 (150-450); RBC Distribution Width CV 12.2 % (11.6-14.6); RBC Distribution Width SD 43.4 fl (35.1-43.9); Red Blood Count 4.64 M/mm3 (4.6-6.2); White Blood Count 6.4 K/mm3 (4.4-11.0)
[2020-11-10 06:52] LABS: Anion Gap 8 (5-15); BUN 10 mg/dL (7-18); BUN/Creat Ratio 16.8 RATIO (10-20); Calcium,Total 8.2 mg/dL (8.5-10.1); Chloride 108 mmol/L (98-107); EST Glomerular Filtration Rate 160 mL/min (>60); Est Glom Filt Rate - Afr Amer 194 mL/min (>60); Estimated Creatinine Clearance 184.95 ml/min; Glucose 85 mg/dL (74-106); Potassium 4.2 mmol/L (3.5-5.1); Sodium Level 143 mmol/L (136-145)
[2020-11-10 09:30] VITALS: BP 145/83; PULSE 54; RESP 16; TEMP 36.9; O2SAT 97
--- NOTE | 2020-11-10 09:32 | NURSING ---
Vancomycin and Unasyn ok to administer at the same time per Matilde MORRISON by phone call.
[2020-11-10] MEDS: morphine SR 15 MG Tablet PO (10:19)
[2020-11-10] MEDS: Celecoxib 200 MG Capsule PO (10:21)
[2020-11-10] MEDS: Enoxaparin 40 MG/0.4 ML Syringe SC (10:24)
--- NOTE | 2020-11-10 11:15 | CASEMGMT ---
RN CM in to pt room to discuss dc planning. Pt nurse reported pt had plans of going to his brother's house in [facility] after dc. Discussed with pt the option of having [facility] come in to the home to assist/monitor wound and dressing changes. Pt states he does not know where he is going after dc. When asked about his brother's, he states it is his shanika and it is up in the air. Pt is aware he needs to [employer] wound supplies and there is a script for them. Pt denies the need for assistance. Pt does not have PCP, discussed if he changed his mind he could potentially be seen by [facility] to see if they would be able to assist him. Pt did not have any further question/concerns.
--- NOTE | 2020-11-10 11:17 | DCINST_ITS ---
- Discharge Diagnoses Current Active Problems: Current Active and Chronic Problems Non-pressure chronic ulcer of other part of left foot with fat layer exposed (Acute) Non-pressure chronic ulcer of other part of right foot with fat layer exposed (Acute) Fracture of left great toe (Acute) Cellulitis of left foot (Acute) IV drug abuse (Chronic) Fracture of metatarsal of left foot, closed (Acute) Abscess of left foot (Acute) You will use the following diet at home:: No restrictions Your food should be the consistency of: Regular Your liquids should be the consistency of: Regular/Thin Discharge Activity: Return to Normal Activity, Use Walker, Use Crutches, - - NWB left foot Weight Bearing Status: No weight bearing - left foot Keep extremity elevated above heart level: Left Leg Additional Activity Instructions:: Nonweightbearing to left foot with Cam boot and dressings intact Call your doctor if your incision/area has: Increased Pain/ Swelling, Increased Redness, Foul Smelling Discharge Call your doctor if you observe: Fever of 101 or Higher, Shortness of breath, Dizziness, Fainting spells, Chest pain, Calf discomfort, Uncontrolled pain Additional Dressing/Incision Instructions:: Clean wound with soap and water pat dry. Please Adaptic over wounds to top of left foot covered by silver alginate. Place hydrogel over wounds to right foot and left big toe and cover with Adaptic. Cover both sites both feet with 4 x 4's, Kerlix, Jonh wrap. This is to be done daily Allergies/Adverse Reactions: Allergies acetaminophen [From Vicodin] Adverse Reaction (Verified 11/05/20 15:29) Upset Stomach hydrocodone bitartrate [From Vicodin] Adverse Reaction (Verified 11/05/20 15:29) Upset Stomach ketorolac tromethamine [From Toradol] Adverse Reaction (Verified 11/05/20 15:29) Other Medications to take at Discharge Amox/Clavulanate Tablet [Augmentin Tablet] 875 mg PO Q12H 10 Days #20 tab 11/10/20 Celecoxib [Celebrex] 200 mg PO BID #30 capsule 11/10/20 Hydrocodone Bitart/Apap 5-325 [[place] 5MG-325MG] 1 tablet PO Q4H PRN PRN 3 Days #18 tab 11/10/20 Smz/Tmp Ds [Bactrim Ds] 1 tablet PO BID 10 Days #20 tab 11/10/20 The following prescriptions were given: Amox/Clavulanate Tablet [Augmentin Tablet] 875 mg PO Q12H 10 Days #20 tab Prescription Printed Smz/Tmp Ds [Bactrim Ds] 1 tablet PO BID 10 Days #20 tab Prescription Printed Celecoxib [Celebrex] 200 mg PO BID #30 capsule Prescription Printed Hydrocodone Bitart/Apap 5-325 [[place] 5MG-325MG] 1 tablet PO Q4H PRN PRN 3 Days #18 tab PRN Reason: Pain Prescription Printed Primary Care Physician: Care Physician,No Primary [Primary Care Provider] - Test Results: Test results from this visit will be discussed in further detail at your follow- up appointment, if applicable. Please Follow Up With: Mizty Storm DPM When: 1 week at the wound care center Please Follow Up With: [facility] When: 1-2 weeks to establish PCP care
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
--- NOTE | 2020-11-16 16:53 | CASEMGMT ---
supervisory it specialist: Phone call received from pt re: need for dressing supplies. Phone call also received from Anni at [facility] regarding pt's need for dressing supplies. This RN CM spoke with pt who states he took the prescription he received at discharge to [facility] who referred him to [facility]. Pt states [facility] told him he needed prior authorization from his insurance before they could fill the script. Pt states today he will be using the last of the supplies. Pt requested supplies be obtained from [facility] in [place] as this is closer to his home. Pt states he has made a follow-up appointment with Dr. Storm at her office and not at the wound center. This appointment is on 11/22. Pt states he does not drive and relies on his parents to provide his transportation. This RN CM contacted [facility] pharmacy in [place] and they are unable to provide medical supplies under his insurance. Contacted [facility] who states they did not start a prior authorization for the supplies and due to pt's insurance referred this RN CM to [facility]. This RN CM spoke with Ludivina at [facility] who states an account would need to be started in the patient's name and it would take 5-7 days for the order to be processed, the authorization obtained and for them to be sent to the pt's home. This RN CM contacted Dr. Storm's office due to pt's emergent need for supplies. Charisma, nurse with Dr. Storm's office contacted Dr. Storm. Per Charisma, Dr. Storm requested pt be seen at the wound center instead of at [facility], Charisma contacted the wound center and set up an appointment for pt to be seen on 11/21 at 0845. Charisma also states per Dr. Storm, pt should use antibiotic ointment with gauze pads until his appointment or until supplies could be obtained. This RN CM called back to [facility], spoke with Estela, set up an account under the patient's name, and ordered supplies as listed on the prescription. This RN CM contacted pt and relayed need to change his appointment date, time, and location. Pt confirmed with his parents while on the phone that they could provide him transportation for this appointment. Explained to pt wound care change and that supplies have been ordered with anticipated arrival in 5-7 days. Pt expressed understanding of directions and appreciation for assistance. Pt denied further needs or questions. Favian Baeza RN CM
== END 2020-11-10 13:42 | disposition home or self-care (01) | DRG 383 ==
LOC: ED 16:21 → MS3 17:27
PROVIDERS: Internal Medicine Infectious Disease; Podiatrist Foot & Ankle Surgery; Admitting Provider Student in an Organized Health Care Education/Training Program; Emergency Provider Emergency Medicine; Visit Provider Student in an Organized Health Care Education/Training Program
PROC: 0JBR0ZZ Excision of Left Foot Subcutaneous Tissue and Fascia, Open Approach (ICD-10-PCS; principal; 2020-11-07 12:50)
DX: L03.113 Cellulitis of right upper limb (principal); L03.116 Cellulitis of left lower limb; L02.612 Cutaneous abscess of left foot; F15.20 Other stimulant dependence, uncomplicated; F17.200 Nicotine dependence, unspecified, uncomplicated; L97.522 Non-pressure chronic ulcer of other part of left foot with fat layer exposed; L97.512 Non-pressure chronic ulcer of other part of right foot with fat layer exposed; Y90.0 Blood alcohol level of less than 20 mg/100 ml; G57.80 Other specified mononeuropathies of unspecified lower limb; M77.8 Other enthesopathies, not elsewhere classified; L02.414 Cutaneous abscess of left upper limb; B95.61 Methicillin susceptible Staphylococcus aureus infection as the cause of diseases classified elsewhere; S92.322A Displaced fracture of second metatarsal bone, left foot, initial encounter for closed fracture; S92.342A Displaced fracture of fourth metatarsal bone, left foot, initial encounter for closed fracture; S92.412A Displaced fracture of proximal phalanx of left great toe, initial encounter for closed fracture; L03.114 Cellulitis of left upper limb; L02.611 Cutaneous abscess of right foot; V09.20XA Pedestrian injured in traffic accident involving unspecified motor vehicles, initial encounter
CPT/HCPCS: 36415; 73090; 73110; 73218; 73630; 73718; 76882; 80048; 80074; 80202; 80307; 82077; 82652; 83605; 85025; 85652; 86140; 86703; 87015; 87040; 87070; 87075; 87077; 87116; 87186; 87205; 87206; 87426; 87640; 93971; 99284; 99406; J7030; J7040; J7050; J7120; A4216; J0295; J2405

== ENCOUNTER 2020-11-25 04:28 | Emergency (ER) | payer MEDICAID, SELFPAY ==
[2020-11-21 08:47] VITALS: BMI 26.2
[2020-11-25 04:29] VITALS: BP 188/170; PULSE 116; RESP 20; TEMP 36.6; O2SAT 98; BMI 27.1
--- NOTE | 2020-11-25 04:45 | CT_ITS ---
STUDY: CT BRAIN WITHOUT CONTRAST REASON FOR EXAM: Male, 40 years old. injury RADIATION DOSAGE (If Supplied By Facility): CTDIvol = ( 44.99 ) mGy, DLP = ( 846.73 ) mGycm TECHNIQUE: Transaxial CT imaging of the brain was performed without administration of intravenous contrast material. Individualized dose optimization techniques were used for this CT. COMPARISON: No relevant priors. FINDINGS: Normal soft tissue structures. Normal calvarium. Normal size ventricles and extra-axial spaces for the patient''s age. Normal white matter tracts of the cerebral hemispheres. Normal basal ganglia and thalami. Normal brainstem. Normal cerebellum. There is no intracranial hemorrhage. There are no findings of an acute ischemic infarction. Normal visualized paranasal sinuses. CT/Brain/Head without Contrast IMPRESSION: Normal unenhanced CT scan of the brain. Electronically Signed: Luciano Bass MD at 6:18 EDT Tel , Service support ,
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
[2020-11-25] MEDS: fentaNYL 100 MCG/2 ML Ampul 50 MCG IM (04:49)
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
--- NOTE | 2020-11-25 06:15 | ED.RN ---
PATIENT STORMED OUT OF ROOM AND STATES HE IS LEAVING AND YELLING PROFANITIES. DR. LITTLE NOTIFIED
== END 2020-11-25 06:15 | disposition home or self-care (01) ==
PROVIDERS: Emergency Provider Emergency Medicine
DX: S06.0X9A Concussion with loss of consciousness of unspecified duration, initial encounter (principal); S13.4XXA Sprain of ligaments of cervical spine, initial encounter; W18.00XA Striking against unspecified object with subsequent fall, initial encounter; Y93.89 Activity, other specified; Y92.59 Other trade areas as the place of occurrence of the external cause; Y99.9 Unspecified external cause status; Z87.891 Personal history of nicotine dependence; Z88.5 Allergy status to narcotic agent
CPT/HCPCS: 70450; 72125; 99283

== ENCOUNTER 2020-11-25 19:58 | Observation (INO) | payer MEDICAID, SELFPAY ==
[2020-11-25 04:29] VITALS: BMI 27.1
[2020-11-25 19:59] VITALS: BP 154/111; PULSE 131; RESP 18; TEMP 36.1; O2SAT 98; BMI 26.4
[2020-11-25 20:50] LABS: Absolute Lymphocyte Count 2.26 X10^3/uL (0.83-4.51); Absolute Neutrophil Count 7.5 X10^3/uL (2.0-7.7); Basophil# 0.03 X10^3/uL; Basophil% 0.3 % (0-1); Hematocrit 42.6 % (40-54); Hemoglobin 14.8 g/dL (13.0-16.5); Lymphocyte # 2.26 X10^3/ul (4.0); Mean Corp Hgb Conc 34.7 g/dL (32-36); Mean Corpuscular Hgb 32.1 pg (27.0-32.0); Mean Corpuscular Volume 92.4 fL (80-94); Mean Platelet Vol. 11.6 fl (6.2-12.0); Monocyte# 0.92 X10^3/uL; Monocyte% 8.6 % (0-10); NRBC Flagged by Analyzer 0 % (0-5); Neutrophil % 69.7 % (47-70); Platelet Count 185 K/mm3 (150-450); RBC Distribution Width CV 12.4 % (11.6-14.6); RBC Distribution Width SD 42.3 fl (35.1-43.9); Red Blood Count 4.61 M/mm3 (4.6-6.2); White Blood Count 10.8 K/mm3 (4.4-11.0)
[2020-11-25 21:14] LABS: AST(SGOT) 179 U/L (15-37); Alanine Aminotransfer ALT/SGPT 221 U/L (16-61); Albumin, Serum 3.6 g/dL (3.2-5.0); Alkaline Phosphatase 99 U/L (45-117); Anion Gap 12 (5-15); BUN 14 mg/dL (7-18); BUN/Creat Ratio 11.9 RATIO (10-20); Calcium,Total 8.5 mg/dL (8.5-10.1); Chloride 102 mmol/L (98-107); Creatinine, Serum 1.18 mg/dL (0.70-1.30); EST Glomerular Filtration Rate 73 mL/min (>60); Est Glom Filt Rate - Afr Amer 88 mL/min (>60); Estimated Creatinine Clearance 94.04 ml/min; Globulin 3.7 g/dL (2.2-4.2); Glucose 144 mg/dL (74-106); Potassium 3.7 mmol/L (3.5-5.1); Protein, Total 7.3 g/dL (6.4-8.2); Sodium Level 136 mmol/L (136-145)
[2020-11-25] MEDS: LORazepam 1 MG Tablet PO (21:16)
[2020-11-25 21:17] VITALS: RESP 24
--- NOTE | 2020-11-25 22:02 | ED.RN ---
PT has removed C-Collar. PT states he still cannot urinate. States he usually only goes once a day. PT provided more water and is drinking gatorade as well.
[2020-11-25 23:14] LABS: Amphetamine Urine VISTA POSITIVE (<1000 ng/mL); Barbiturate Urine VISTA NEGATIVE (< 200 ng/mL); Benzodiazepine Urine VISTA NEGATIVE (< 200 ng/mL); Cocaine Urine VISTA NEGATIVE (< 300 ng/mL); Ecstacy Urine VISTA POSITIVE (< 500 ng/mL); Methadone Urine VISTA NEGATIVE (< 300 ng/mL); PCP Urine VISTA NEGATIVE (< 25 ng/mL); THC Urine VISTA POSITIVE (< 50 ng/mL); Vista UDS pH Range 6
--- NOTE | 2020-11-25 23:20 | ED.DCSUM_ITS ---
- ER Visit Summary Date of Service: 11/25/20 Chief Complaint: [Request for detox from drugs and alcohol] History of Present Illness: The patient is a 40 M [presents to the emergency department requesting detox. Patient states that he last used amphetamines less than 24 hours ago. Patient also uses alcohol daily. Patient normally uses amphetamines via IV route. Patient states that he was advised by friends and family that he needed detox. Patient was seen in the emergency department last evening after hitting his head and had imaging of his head and neck. Patient presented with a c-collar on and a walking boot on his left leg. Patient states he has not slept in 5 days. Patient having auditory and visual hallucinations. Patient has used opiates in the past but not for several weeks. Patient otherwise has no medical history.] Physical Examination: [HEENT-PERRLA, EOMI. Cranial nerves II through XII grossly intact. TMs clear. Mucous membranes moist. No adenopathy. Cardiovascular-regular rate and rhythm without murmur or ectopy Lungs-clear to auscultation, chest wall stable without crepitus or subcu emphysema Abdomen-normoactive bowel sounds, soft, nontender, no rebound or rigidity, no peritoneal signs. Extremities-intact ?4, normal range of motion, normal pulses. Patient has multiple track marcus to the upper extremities.] Test Results: [CBC with differential showing a 10.8, hemoglobin 14.8, hematocrit 43, plates 185. Chemistries unremarkable. ALT 221, AST 179, alcohol was 21, toxicology screen was positive for amphetamines as well as methamphetamines and marijuana.] Emergency Department Course and Treatment: [Patient received Ativan 1 mg p.o. for agitation. Patient also received a nicotine patch 21 mcg. Case was discussed with hospitalist will evaluate patient for admission] Treatment Plan: [Admit] Disposition: [Admit] Impression: [Request for detox from alcohol Illicit drug use Hallucinations related to drug use] This note was generated with [employer] dictation software. It may contain incorrect words, spelling, and punctuation that were not noted in review of the chart prior to signing ED Disposition - Plan for ED Patient: Referrals: Care Physician,No Primary [Primary Care Provider] -
[2020-11-25 23:33] VITALS: BP 140/99; PULSE 99; RESP 18; TEMP 36.7; O2SAT 100
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
[2020-11-25 23:56] VITALS: BMI 26.5
[2020-11-26] VITALS (8 sets, daily range): BP systolic 107–134; BP diastolic 56–89; PULSE 71–106; RESP 16–20; TEMP 36.6–36.9; O2SAT 9–100; BMI 26.5
[2020-11-26] MEDS: Phenobarbital 32.4 MG Tablet 64.8 MG PO ×6 (00:15→20:47)
[2020-11-26] MEDS: hydrOXYzine PAM 25 MG Capsule 50 MG PO ×3 (00:16→20:47)
[2020-11-26] MEDS: traZODone 100 MG Tablet PO (00:16)
[2020-11-26] MEDS: Gabapentin 300 MG Capsule PO (00:16)
--- NOTE | 2020-11-26 00:45 | NURSING ---
Upon arrival to the ER for the [facility] program, patient was wheeled up in a w/c via staff. Patient was still in street clothes with this cell phone out. Per staff midwife from ER patient still had his cell phone out because he wanted to text the contract to his girlfriend. Staff from ER left floor. This RN and aid were in patients room. Patient took a significant amount of time to give up phone and change into a gown per staff request. When this RN was at his bedside he told this RN your aid is quick, as he proceeded to show this RN a wrapped up bloody gauze pad with blue tape placed under his green pad on bed. This RN then ask him what that was and he said it was his oxycodone from home. This RN did not open the gauze, placed it in his zip tied containers with all this other belongings. Patient was not resistant during this situation. All other belongings were placed in totes with zip ties per protocol except for patients cam walking boot. [employer] aware of situation and dayshift RN will be notified in AM.
[2020-11-26] MEDS: Folic Acid 1 MG Tablet PO (08:31)
[2020-11-26] MEDS: Thiamine Hydrochloride 100 MG Tablet PO (08:31)
--- NOTE | 2020-11-26 09:55 | PCM.PROGNOTE ---
<Myah Brush DOCUMENT CONTROL ASSISTANT - Last Filed: 11/26/20 10:08> Subjective: Patient seen and examined. Denies withdrawal symptoms. Denies other symptoms or complaints. - Physical Exam Vitals/I&O's: Vital Signs Temp Pulse Resp BP Pulse Ox 98 F 71 20 H 107/73 9 11/26/20 08:29 11/26/20 08:29 11/26/20 08:29 11/26/20 08:29 11/26/20 08:29 Oxygen Delivery Method Room Air Weight: 200 lb Body Mass Index (BMI) 26.5 General: Alert, Oriented x3, Cooperative HEENT: Atraumatic, PERRLA, EOMI, Normocephalic Neck: Supple, No JVD, Negative Carotid Bruits Lungs: Clear to auscultation, Normal air movement Cardiovascular: Regular rate, No murmurs Abdomen: Bowel Sounds Present, Soft, Non Tender, Non-Distended Extremities: No clubbing, No cyanosis, No edema, Capillary Refill Less than 3 Seconds Skin: No rashes, No breakdown, - - Left foot wounds, dressing intact Musculoskeletal: No Tenderness to Palpation of Joints or Extremities Neurological: Cranial nerves II-XII grossly intact, Neuro grossly intact Psych/Mental Status: Normal Affect, Appropriate Laboratory Results 11/25/20 20:40: WBC 10.8, RBC 4.61, Hgb 14.8, Hct 42.6, MCV 92.4, MCH 32.1 H, MCHC 34.7, RDW Std Deviation 42.3, RDW Coeff of Zahra 12.4, Plt Count 185, MPV 11.6, Immature Gran % (Auto) 0.400, Neut % (Auto) 69.7, Lymph % (Auto) 21.0, Loup % (Auto) 8.6, Eos % (Auto) 0.0, Baso % (Auto) 0.3, Absolute Neuts (auto) 7.5, Absolute Lymphs (auto) 2.26, Nucleated RBC % 0 11/25/20 20:40: Sodium 136, Potassium 3.7, Chloride 102, Carbon Dioxide 22.0, Anion Gap 12, BUN 14, Creatinine 1.18, Estim Creat Clear Calc 94.04, Est GFR (MDRD) Af Amer 88, Est GFR (MDRD) Non-Af 73, BUN/Creatinine Ratio 11.9, Glucose 144 H, Calcium 8.5, Total Bilirubin 0.70, AST 179 H, ALT 221 H, Alkaline Phosphatase 99, Total Protein 7.3, Albumin 3.6, Globulin 3.7, Albumin/Globulin Ratio 1.0 11/25/20 20:40: Ethyl Alcohol 21.0 11/25/20 22:45: Urine Opiates Screen NEGATIVE, Urine Methadone Screen NEGATIVE, Ur Barbiturates Screen NEGATIVE, Ur Phencyclidine Scrn NEGATIVE, Ur Amphetamines Screen POSITIVE H, U Methamphetamin-MDMA POSITIVE H, U Benzodiazepines Scrn NEGATIVE, Urine Cocaine Screen NEGATIVE, U Cannabinoids Screen POSITIVE H, Ur Drug Screen Comment Current Medications Dicyclomine HCl (Dicyclomine 10 Mg Capsule) 20 mg PO Q6H PRN PRN PRN Reason: abdominal discomfort Folic Acid (Folic Acid 1 Mg Tablet) 1 mg PO DAILY@0800 [facility] Last Admin: 11/26/20 08:31 Dose: 1 mg Documented by: Gabapentin (Gabapentin 300 Mg Capsule) 300 mg PO Q8H PRN PRN PRN Reason: moderate to severe anxiety Last Admin: 11/26/20 00:16 Dose: 300 mg Documented by: Hydroxyzine Pamoate (Hydroxyzine Janessa 25 Mg Capsule) 50 mg PO Q4H PRN PRN PRN Reason: mild anxiety Last Admin: 11/26/20 00:16 Dose: 50 mg Documented by: Sodium Chloride () 250 mls @ 15 mls/hr IV .[id number] PRN PRN Reason: Saline Flush Sodium Chloride () 250 mls @ 15 mls/hr IV .[id number] PRN PRN Reason: Additional IVPB Infusion Loperamide HCl (Loperamide 2 Mg Capsule) 2 mg PO Q4H PRN PRN PRN Reason: LOOSE STOOLS Nicotine (Nicotine 21 Mg Patch) 21 mg TD DAILY [facility] Last Admin: 11/26/20 08:32 Dose: 21 mg Documented by: Ondansetron HCl (Ondansetron 8 Mg Tablet) 8 mg PO Q8H PRN PRN PRN Reason: NAUSEA Phenobarbital (Phenobarbital 32.4 Mg Tablet) 97.2 mg PO Q4H [facility]; Taper Stop: 11/30/20 08:14 Last Admin: 11/26/20 08:31 Dose: 97.2 mg Documented by: Sodium Chloride (0.9% Saline Lock 10 Ml Syringe) 10 - 40 ml IV UD PRN PRN Reason: SALINE FLUSH Thiamine HCl (Thiamine Hydrochloride 100 Mg Tablet) 100 mg PO DAILYCM [facility] Last Admin: 11/26/20 08:31 Dose: 100 mg Documented by: Trazodone HCl (Trazodone 100 Mg Tablet) 100 mg PO QHS PRN PRN Reason: INSOMNIA Last Admin: 11/26/20 00:16 Dose: 100 mg Documented by: Medical Necessity - Tobacco Use Smoking Status: Current every day smoker Tobacco Use: Cigarettes Assessment/Plan All Active Problems Non-pressure chronic ulcer of other 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 Alcohol withdrawal-medical stabilization per protocol. Phenobarbital taper. Folic acid, thiamine supplementation. As needed regimen for somatic complaints. [employer] consult. 2. Polysubstance abuse with history of IV drug use-tox screen positive for amphetamines, methamphetamines and cannabinoids. [employer] consulted as noted above. 3. Recent left foot fracture secondary to crush injury, left foot ulceration status post debridement 11/07/2020, right foot ulceration status post debridement 11/07/2020. Following at wound center. Wound RN consult. Continue use of Cam boot/crutches. PT eval. Previously completed course of antibiotics. 4. Tobacco dependence- encouraged cessation. Nicotine replacement patch. DVT prophylaxis- low risk, early ambulation This patient was seen by AMADEO Ardon under the supervision of Dr. Sanders. <Cathryn Sanders - Last Filed: 11/26/20 13:14> - Physical Exam Vitals/I&O's: Vital Signs Temp Pulse Resp BP Pulse Ox 98 F 71 20 H 107/73 97 11/26/20 09:00 11/26/20 09:00 11/26/20 09:00 11/26/20 09:00 11/26/20 09:00 Oxygen Delivery Method Room Air Weight: 199 lb 15.983 oz Body Mass Index (BMI) 26.5 Intake and Output for Last 24 Hours 11/24/20 11/25/20 11/26/20 23:59 23:59 23:59 Intake Total 480 / 480 Balance 480 / 480 Laboratory Results 11/25/20 20:40: WBC 10.8, RBC 4.61, Hgb 14.8, Hct 42.6, MCV 92.4, MCH 32.1 H, MCHC 34.7, RDW Std Deviation 42.3, RDW Coeff of Zahra 12.4, Plt Count 185, MPV 11.6, Immature Gran % (Auto) 0.400, Neut % (Auto) 69.7, Lymph % (Auto) 21.0, Loup % (Auto) 8.6, Eos % (Auto) 0.0, Baso % (Auto) 0.3, Absolute Neuts (auto) 7.5, Absolute Lymphs (auto) 2.26, Nucleated RBC % 0 11/25/20 20:40: Sodium 136, Potassium 3.7, Chloride 102, Carbon Dioxide 22.0, Anion Gap 12, BUN 14, Creatinine 1.18, Estim Creat Clear Calc 94.04, Est GFR (MDRD) Af Amer 88, Est GFR (MDRD) Non-Af 73, BUN/Creatinine Ratio 11.9, Glucose 144 H, Calcium 8.5, Total Bilirubin 0.70, AST 179 H, ALT 221 H, Alkaline Phosphatase 99, Total Protein 7.3, Albumin 3.6, Globulin 3.7, Albumin/Globulin Ratio 1.0 11/25/20 20:40: Ethyl Alcohol 21.0 11/25/20 22:45: Urine Opiates Screen NEGATIVE, Urine Methadone Screen NEGATIVE, Ur Barbiturates Screen NEGATIVE, Ur Phencyclidine Scrn NEGATIVE, Ur Amphetamines Screen POSITIVE H, U Methamphetamin-MDMA POSITIVE H, U Benzodiazepines Scrn NEGATIVE, Urine Cocaine Screen NEGATIVE, U Cannabinoids Screen POSITIVE H, Ur Drug Screen Comment Current Medications Dicyclomine HCl (Dicyclomine 10 Mg Capsule) 20 mg PO Q6H PRN PRN PRN Reason: abdominal discomfort Folic Acid (Folic Acid 1 Mg Tablet) 1 mg PO DAILY@0800 [facility] Last Admin: 11/26/20 08:31 Dose: 1 mg Documented by: Gabapentin (Gabapentin 300 Mg Capsule) 300 mg PO Q8H PRN PRN PRN Reason: moderate to severe anxiety Last Admin: 11/26/20 00:16 Dose: 300 mg Documented by: Hydroxyzine Pamoate (Hydroxyzine Janessa 25 Mg Capsule) 50 mg PO Q4H PRN PRN PRN Reason: mild anxiety Last Admin: 11/26/20 00:16 Dose: 50 mg Documented by: Sodium Chloride () 250 mls @ 15 mls/hr IV .[id number] PRN PRN Reason: Saline Flush Sodium Chloride () 250 mls @ 15 mls/hr IV .[id number] PRN PRN Reason: Additional IVPB Infusion Loperamide HCl (Loperamide 2 Mg Capsule) 2 mg PO Q4H PRN PRN PRN Reason: LOOSE STOOLS Nicotine (Nicotine 21 Mg Patch) 21 mg TD DAILY [facility] Last Admin: 11/26/20 08:32 Dose: 21 mg Documented by: Ondansetron HCl (Ondansetron 8 Mg Tablet) 8 mg PO Q8H PRN PRN PRN Reason: NAUSEA Phenobarbital (Phenobarbital 32.4 Mg Tablet) 97.2 mg PO Q4H [facility]; Taper Stop: 11/30/20 08:14 Last Admin: 11/26/20 12:31 Dose: 97.2 mg Documented by: Sodium Chloride (0.9% Saline Lock 10 Ml Syringe) 10 - 40 ml IV UD PRN PRN Reason: SALINE FLUSH Thiamine HCl (Thiamine Hydrochloride 100 Mg Tablet) 100 mg PO DAILYCM [facility] Last Admin: 11/26/20 08:31 Dose: 100 mg Documented by: Trazodone HCl (Trazodone 100 Mg Tablet) 100 mg PO QHS PRN PRN Reason: INSOMNIA Last Admin: 11/26/20 00:16 Dose: 100 mg Documented by: Assessment/Plan Patient seen by Myah CHILDS under my supervision Patient seen and examined. He complains of some tingling in the tips of his fingers and also some pain on his tongue. He has been managed for acute alcohol withdrawal. Review of symptoms otherwise negative. O/E: Vital Signs Temp Pulse Resp BP Pulse Ox 98 F 71 20 H 107/73 97 11/26/20 09:00 11/26/20 09:00 11/26/20 09:00 11/26/20 09:00 11/26/20 09:00 General: Alert, Oriented x3, Cooperative HEENT: Atraumatic, PERRLA, EOMI, Normocephalic Neck: Supple, No JVD, Negative Carotid Bruits Lungs: Clear to auscultation, Normal air movement Cardiovascular: Regular rate, No murmurs Abdomen: Bowel Sounds Present, Soft, Non Tender, Non-Distended Extremities: No clubbing, No cyanosis, No edema, Capillary Refill Less than 3 Seconds Skin: No rashes, No breakdown, - - Left foot wounds, dressing intact Musculoskeletal: No Tenderness to Palpation of Joints or Extremities Neurological: Cranial nerves II-XII grossly intact, Neuro grossly intact Psych/Mental Status: Normal Affect, Appropriate Plan is to continue acute alcohol withdrawal with phenobarbital. Monitor CIWA score. Continue folic acid, thiamine and Multivite supplementation. 180 consulted. Wound care nurse consulted on account of recent left foot fracture and resultant infection and ulceration status post debridement. On nicotine patch. Rest as per Myah Brush DOCUMENT CONTROL ASSISTANT-c's note, which I have reviewed and endorsed. Inpatient E&M: 67134 Subs Hosp L2
--- NOTE | 2020-11-26 10:31 | NT.THERAPY_ITS ---
Nutrition Therapy Report - History Nutrition Services has been consulted to:: Manage nutrient details of diet order Current diet / nutrition support order:: regular - Anthropometric Measurements Height:: 6 ft 0.83 in Weight:: 90.718 kg Body Mass Index (BMI):: 26.5 - Relevant Labs Relevant Labs:: MCH 32.1 pg (27.0-32.0) H 11/25/20 20:40 Glucose 144 mg/dL (74-106) H 11/25/20 20:40 AST 179 U/L (15-37) H 11/25/20 20:40 ALT 221 U/L (16-61) H 11/25/20 20:40 - Assessment Food / Nutrition-Related History:: Good intake noted at breakfast this AM. States he did not eat over the last 1 week d/t drug/alcohol abuse. Recently d/c'd from [facility]. Wt was 208.8# on 11/05, CBW 200#- 8.8#/4.2% wt loss x ~1-3 weeks. - Nutrition Diagnosis Problem / Etiology / Signs & Symptoms (PES):: moderate, acute malnutrition r/t inadequate energy intake d/t drug/alcohol abuse as evidenced by wt loss of 8.8#/4.2% wt loss over past 1-3 weeks, estimated PO intake meeting <50% of nutritional needs x 8 days HAIR BALER Evidence of Malnutrition Exists:: Yes Moderate PCM:: Acute Illness - Nutrition Intervention Nutrition Prescription:: 2639-4070 calories/day (1.3xRMR). 80-90 g protein/day (1g/kg). 3150mL fluid/day (35mL/kg) - Food / Nutrient Delivery Interventions Summary of nutrition intervention:: Had Ab ordered during previous admission. Pt states he will not drink Ab if re-ordered this admission. Pt stating he doesnt want to eat too much and stretch his stomach back out. Explained importance of adequate nutrition for wound healing. Pt refusing ONS/further RDN interventions. Nutrition support ordered as / adjusted to:: continue regular diet. - MNT Monitoring Further MNT monitoring and evaluation required?: Yes MNT Follow-up in:: 5-7 days
[2020-11-26] MEDS: 0.9% Saline Lock 10 ML Syringe IV (20:48)
[2020-11-27] MEDS: Phenobarbital 32.4 MG Tablet 64.8 MG PO ×6 (00:28→20:58)
[2020-11-27 00:33] VITALS: BP 123/89; PULSE 65; RESP 16; TEMP 36.3; O2SAT 98
[2020-11-27 04:05] VITALS: BP 98/54; PULSE 68; RESP 16; TEMP 36.5; O2SAT 97
[2020-11-27 06:23] LABS: AST(SGOT) 142 U/L (15-37); Alanine Aminotransfer ALT/SGPT 168 U/L (16-61); Albumin, Serum 2.7 g/dL (3.2-5.0); Alkaline Phosphatase 94 U/L (45-117); Bilirubin, Direct 0.18 mg/dL (0.00-0.30); Globulin 3.4 g/dL (2.2-4.2); Protein, Total 6.1 g/dL (6.4-8.2)
[2020-11-27 07:59] VITALS: BP 104/61; PULSE 60; RESP 16; TEMP 36.7; O2SAT 97
[2020-11-27] MEDS: Folic Acid 1 MG Tablet PO (08:07)
[2020-11-27] MEDS: Thiamine Hydrochloride 100 MG Tablet PO (08:07)
--- NOTE | 2020-11-27 09:50 | PCM.PROGNOTE ---
<Myah Brush MANAGER FLORAL - Last Filed: 11/27/20 09:52> Subjective: Patient seen and examined. Drowsy during assessment. Denies withdrawal symptoms, no acute events overnight. - Physical Exam Vitals/I&O's: Vital Signs Temp Pulse Resp BP Pulse Ox 98.0 F 60 16 104/61 97 11/27/20 07:59 11/27/20 07:59 11/27/20 07:59 11/27/20 07:59 11/27/20 07:59 Oxygen Delivery Method Room Air Weight: 199 lb 15.983 oz Body Mass Index (BMI) 26.5 Intake and Output for Last 24 Hours 11/25/20 11/26/20 11/27/20 23:59 23:59 23:59 Intake Total 1080 / 1330 350 / 350 Balance 1080 / 1330 350 / 350 General: Alert, Oriented x3, Cooperative HEENT: Atraumatic, PERRLA, EOMI, Normocephalic Neck: Supple, No JVD, Negative Carotid Bruits Lungs: Clear to auscultation, Normal air movement Cardiovascular: Regular rate, No murmurs Abdomen: Bowel Sounds Present, Soft, Non Tender, Non-Distended Extremities: No clubbing, No cyanosis, No edema, Capillary Refill Less than 3 Seconds Skin: No rashes, No breakdown, - - Left foot wounds, dressing intact Musculoskeletal: No Tenderness to Palpation of Joints or Extremities Neurological: Cranial nerves II-XII grossly intact, Neuro grossly intact Psych/Mental Status: Normal Affect, Appropriate Laboratory Results 11/27/20 05:20: Total Bilirubin 0.30, Direct Bilirubin 0.18, AST 142 H, ALT 168 H, Alkaline Phosphatase 94, Total Protein 6.1 L, Albumin 2.7 L, Globulin 3.4 Current Medications Dicyclomine HCl (Dicyclomine 10 Mg Capsule) 20 mg PO Q6H PRN PRN PRN Reason: abdominal discomfort Folic Acid (Folic Acid 1 Mg Tablet) 1 mg PO DAILY@0800 [facility] Last Admin: 11/27/20 08:07 Dose: 1 mg Documented by: Gabapentin (Gabapentin 300 Mg Capsule) 300 mg PO Q8H PRN PRN PRN Reason: moderate to severe anxiety Last Admin: 11/26/20 00:16 Dose: 300 mg Documented by: Hydroxyzine Pamoate (Hydroxyzine Janessa 25 Mg Capsule) 50 mg PO Q4H PRN PRN PRN Reason: mild anxiety Last Admin: 11/26/20 20:47 Dose: 50 mg Documented by: Sodium Chloride () 250 mls @ 15 mls/hr IV .[id number] PRN PRN Reason: Saline Flush Sodium Chloride () 250 mls @ 15 mls/hr IV .[id number] PRN PRN Reason: Additional IVPB Infusion Loperamide HCl (Loperamide 2 Mg Capsule) 2 mg PO Q4H PRN PRN PRN Reason: LOOSE STOOLS Nicotine (Nicotine 21 Mg Patch) 21 mg TD DAILY [facility] Last Admin: 11/26/20 08:32 Dose: 21 mg Documented by: Ondansetron HCl (Ondansetron 8 Mg Tablet) 8 mg PO Q8H PRN PRN PRN Reason: NAUSEA Phenobarbital (Phenobarbital 32.4 Mg Tablet) 64.8 mg PO Q4H [facility]; Taper Stop: 11/30/20 08:14 Last Admin: 11/27/20 08:07 Dose: 64.8 mg Documented by: Sodium Chloride (0.9% Saline Lock 10 Ml Syringe) 10 - 40 ml IV UD PRN PRN Reason: SALINE FLUSH Last Admin: 11/26/20 20:48 Dose: 10 ml Documented by: Thiamine HCl (Thiamine Hydrochloride 100 Mg Tablet) 100 mg PO DAILYCM [facility] Last Admin: 11/27/20 08:07 Dose: 100 mg Documented by: Trazodone HCl (Trazodone 100 Mg Tablet) 100 mg PO QHS PRN PRN Reason: INSOMNIA Last Admin: 11/26/20 00:16 Dose: 100 mg Documented by: Medical Necessity - Tobacco Use Smoking Status: Current every day smoker Tobacco Use: Cigarettes Assessment/Plan All Active Problems Non-pressure chronic ulcer of other 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 Alcohol withdrawal-medical stabilization per protocol. Phenobarbital taper. Folic acid, thiamine supplementation. As needed regimen for somatic complaints. [employer] consult. 2. Polysubstance abuse with history of IV drug use-tox screen positive for amphetamines, methamphetamines and cannabinoids. [employer] consulted as noted above. 3. Recent left foot fracture secondary to crush injury, left foot ulceration status post debridement 11/07/2020, right foot ulceration status post debridement 11/07/2020. Following at wound center. Wound RN consult. Continue use of Cam boot/crutches. PT eval. Previously completed course of antibiotics. 4. Tobacco dependence- encouraged cessation. Nicotine replacement patch. DVT prophylaxis- low risk, early ambulation This patient was seen by AMADEO Ardon under the supervision of Dr. Nguyen. <Kumar Nguyen - Last Filed: 11/27/20 10:41> Subjective: Feels terrible. Does not elaborate, then falls asleep. - Physical Exam Vitals/I&O's: Vital Signs Temp Pulse Resp BP Pulse Ox 36.7 C 60 16 104/61 97 11/27/20 07:59 11/27/20 07:59 11/27/20 07:59 11/27/20 07:59 11/27/20 07:59 Oxygen Delivery Method Room Air Weight: 90.718 kg Body Mass Index (BMI) 26.5 Intake and Output for Last 24 Hours 11/25/20 11/26/20 11/27/20 23:59 23:59 23:59 Intake Total 1080 / 1330 350 / 350 Balance 1080 / 1330 350 / 350 General: - - quickly falls asleep after being woken up. Laboratory Results 11/27/20 05:20: Total Bilirubin 0.30, Direct Bilirubin 0.18, AST 142 H, ALT 168 H, Alkaline Phosphatase 94, Total Protein 6.1 L, Albumin 2.7 L, Globulin 3.4 Current Medications Dicyclomine HCl (Dicyclomine 10 Mg Capsule) 20 mg PO Q6H PRN PRN PRN Reason: abdominal discomfort Folic Acid (Folic Acid 1 Mg Tablet) 1 mg PO DAILY@0800 [facility] Last Admin: 11/27/20 08:07 Dose: 1 mg Documented by: Gabapentin (Gabapentin 300 Mg Capsule) 300 mg PO Q8H PRN PRN PRN Reason: moderate to severe anxiety Last Admin: 11/26/20 00:16 Dose: 300 mg Documented by: Hydroxyzine Pamoate (Hydroxyzine Janessa 25 Mg Capsule) 50 mg PO Q4H PRN PRN PRN Reason: mild anxiety Last Admin: 11/26/20 20:47 Dose: 50 mg Documented by: Sodium Chloride () 250 mls @ 15 mls/hr IV .[id number] PRN PRN Reason: Saline Flush Sodium Chloride () 250 mls @ 15 mls/hr IV .[id number] PRN PRN Reason: Additional IVPB Infusion Loperamide HCl (Loperamide 2 Mg Capsule) 2 mg PO Q4H PRN PRN PRN Reason: LOOSE STOOLS Nicotine (Nicotine 21 Mg Patch) 21 mg TD DAILY [facility] Last Admin: 11/27/20 10:24 Dose: 21 mg Documented by: Ondansetron HCl (Ondansetron 8 Mg Tablet) 8 mg PO Q8H PRN PRN PRN Reason: NAUSEA Phenobarbital (Phenobarbital 32.4 Mg Tablet) 64.8 mg PO Q4H [facility]; Taper Stop: 11/30/20 08:14 Last Admin: 11/27/20 08:07 Dose: 64.8 mg Documented by: Sodium Chloride (0.9% Saline Lock 10 Ml Syringe) 10 - 40 ml IV UD PRN PRN Reason: SALINE FLUSH Last Admin: 11/26/20 20:48 Dose: 10 ml Documented by: Thiamine HCl (Thiamine Hydrochloride 100 Mg Tablet) 100 mg PO DAILYCM [facility] Last Admin: 11/27/20 08:07 Dose: 100 mg Documented by: Trazodone HCl (Trazodone 100 Mg Tablet) 100 mg PO QHS PRN PRN Reason: INSOMNIA Last Admin: 11/26/20 00:16 Dose: 100 mg Documented by: Assessment/Plan Patient seen and examined independently. Data reviewed. I agree with the above note by the nurse practitioner. 1. Acute alcohol withdrawal: Patient on phenobarbital taper as well as folic acid and thiamine. 2. Polysubstance abuse will complicate the patient's long-term recovery and maintaining sobriety. Inpatient E&M: [id number] [facility] L1
--- NOTE | 2020-11-27 10:23 | NURSING ---
wound photo: left dorsal foot
--- NOTE | 2020-11-27 10:24 | NURSING ---
wound photo: right medial foot
--- NOTE | 2020-11-27 10:32 | ADDICTION ---
This mortgage underwriter attempted to meet with PT to complete ASAM, MSE, AUDIT/DUDIT assessments and to plan for d/c. PT stated I'm grumpy as shit. The less we talk, the better we'll be. This mortgage underwriter informed PT that he needs to complete the required documentation per his [employer] agreement. PT stated that he will engage tomorrow, 11/28/20.
--- NOTE | 2020-11-27 14:10 | CASEMGMT ---
RN CM Readmission Note: Pt admitted on 11.05.20-11.10.20 for bilat foot ulcers due to trauma, fx of L great toe, cellulitis of L foot. Pt dc'd on po antibiotics and wound care. Pt was homeless at that time. Alcohol and drug use known on this admission. Pt did follow up with at the wound center and completed his antibiotics. Pt had been completing own dressing changes. Pt admitted on 11.25.20 to [facility] with wish to detox from ETOH. Wounds improving. Pt wearing cam boot. At this time, pt has not spoken with 180 but agreed to tomorrow.
[2020-11-27 20:50] VITALS: BP 101/71; PULSE 67; RESP 16; TEMP 36.9; O2SAT 99
[2020-11-27] MEDS: hydrOXYzine PAM 25 MG Capsule 50 MG PO (20:58)
[2020-11-28] MEDS: Phenobarbital 32.4 MG Tablet 64.8 MG PO ×3 (00:25→07:39)
[2020-11-28 04:20] VITALS: BP 100/77; PULSE 58; RESP 16; TEMP 36.4; O2SAT 99
--- NOTE | 2020-11-28 04:49 | NURSING ---
0440 Pt. states it is okay that we speak with aunt Prabha, but does not want to be notified every time she calls. Asked this RN to make a note stating such. Denies other needs.
--- NOTE | 2020-11-28 07:38 | NURSING ---
PT REFUSING VITALS AND ASSESSMENT
[2020-11-28] MEDS: Folic Acid 1 MG Tablet PO (07:40)
[2020-11-28] MEDS: Thiamine Hydrochloride 100 MG Tablet PO (07:40)
--- NOTE | 2020-11-28 08:14 | ADDICTION ---
This life underwriter attempted to meet with PT to conduct required documentation. PT was highly agitated and refused to speak with this life underwriter. PT reported that I just want to leave. This life underwriter asked PT if he wanted to leave AMA and PT responded with raised voice and mocking tone I.[email or web address].[email or web address]. Can you understand that. This life underwriter informed PT's nurse of this interaction. Nurse stated that he is refusing all services other than his medications.
--- NOTE | 2020-11-28 09:04 | DCINST_ITS ---
You will use the following diet at home:: No restrictions Discharge Activity: Return to Normal Activity Allergies/Adverse Reactions: Allergies acetaminophen [From Vicodin] Adverse Reaction (Verified 11/25/20 20:02) Upset Stomach hydrocodone bitartrate [From Vicodin] Adverse Reaction (Verified 11/25/20 20:02) Upset Stomach ketorolac tromethamine [From Toradol] Adverse Reaction (Verified 11/25/20 20:02) Other Medications to take at Discharge Celecoxib [Celebrex] 200 mg PO BID #30 capsule 11/10/20 Pantoprazole Sodium [Protonix] 20 mg PO DAILY #30 tab 11/10/20 Primary Care Physician: Care Physician,No Primary [Primary Care Provider] - Please follow up with your Primary Care Physician in: 1 Week Test Results: Test results from this visit will be discussed in further detail at your follow- up appointment, if applicable. Please Follow Up With: [facility] When: Call for follow up Proposed Discharge Date: 11/28/20
--- NOTE | 2020-11-28 09:05 | DS.PCM_ITS ---
<Myah Brush MANAGER GAMING - Last Filed: 11/28/20 09:14> Discharge Date and Diagnosis Date of Admission: 11/25/20 Date of Discharge: 11/28/20 - Primary Discharge Diagnosis Acute Problems: 1. Alcohol withdrawal 2. Polysubstance abuse with history of IV drug use 3. Recent left foot fracture secondary to crush injury, left foot ulceration status post debridement 11/07/2020, right foot ulceration status post debridement 11/07/2020. 4. Tobacco dependence - Secondary Discharge Diagnosis Chronic Problems: Chronic Problems IV drug abuse (Chronic) Hospital Course and Treatment Consultations 11/26/20 06:08 Consult: Onc/Wound/software application tester Routine Comment: surgical wound to left foot [facility] Operations: None Procedures: None Summary of Care Provided: The patient is a 40 year old M admitted 11/25/20 secondary to alcohol detox. 1. Alcohol withdrawal-medical stabilization per protocol. Phenobarbital taper during admission. [facility] consulted however patient was not cooperative with assessment and became agitated and verbally abusive. He is refusing nursing assessment, vitals, etc. Patient reports he is very agitated and wants to be discharged. He has not interested in following up with addiction medicine at this time. 2. Polysubstance abuse with history of IV drug use-tox screen positive for amphetamines, methamphetamines and cannabinoids. 3. Recent left foot fracture secondary to crush injury, left foot ulceration status post debridement 11/07/2020, right foot ulceration status post debridement 11/07/2020. Continue use of Cam boot/crutches. Previously followed at wound center. 4. Tobacco dependence- encouraged cessation. General: Alert, Oriented x3, Cooperative HEENT: Atraumatic, PERRLA, EOMI, Normocephalic Neck: Supple, No JVD, Negative Carotid Bruits Lungs: Clear to auscultation, Normal air movement Cardiovascular: Regular rate, No murmurs Abdomen: Bowel Sounds Present, Soft, Non Tender, Non-Distended Extremities: No clubbing, No cyanosis, No edema, Capillary Refill Less than 3 Seconds Skin: No rashes, No breakdown, - - Left foot wounds, dressing intact Musculoskeletal: No Tenderness to Palpation of Joints or Extremities Neurological: Cranial nerves II-XII grossly intact, Neuro grossly intact Psych/Mental Status: Agitated Patient seen and examined prior to discharge. Physical assessment as noted above. Patient is stable for discharge with follow up recommendations as noted above. This patient was seen by AMADEO Ardon under the supervision of Dr. Nguyen. - Physical Exam Vitals/I&O's: Vital Signs Temp Pulse Resp BP Pulse Ox 97.6 F L 58 L 16 100/77 99 11/28/20 04:20 11/28/20 04:20 11/28/20 04:20 11/28/20 04:20 11/28/20 04:20 Oxygen Delivery Method Room Air Weight: 199 lb 15.983 oz Body Mass Index (BMI) 26.5 Intake and Output for Last 24 Hours 11/26/20 11/27/20 11/28/20 23:59 23:59 23:59 Intake Total 1080 / 1330 350 / 350 Balance 1080 / 1330 350 / 350 Current Medications Dicyclomine HCl (Dicyclomine 10 Mg Capsule) 20 mg PO Q6H PRN PRN PRN Reason: abdominal discomfort Folic Acid (Folic Acid 1 Mg Tablet) 1 mg PO DAILY@0800 [facility] Last Admin: 11/28/20 07:40 Dose: 1 mg Documented by: Gabapentin (Gabapentin 300 Mg Capsule) 300 mg PO Q8H PRN PRN PRN Reason: moderate to severe anxiety Last Admin: 11/26/20 00:16 Dose: 300 mg Documented by: Hydroxyzine Pamoate (Hydroxyzine Janessa 25 Mg Capsule) 50 mg PO Q4H PRN PRN PRN Reason: mild anxiety Last Admin: 11/27/20 20:58 Dose: 50 mg Documented by: Sodium Chloride () 250 mls @ 15 mls/hr IV .[id number] PRN PRN Reason: Saline Flush Sodium Chloride () 250 mls @ 15 mls/hr IV .[id number] PRN PRN Reason: Additional IVPB Infusion Loperamide HCl (Loperamide 2 Mg Capsule) 2 mg PO Q4H PRN PRN PRN Reason: LOOSE STOOLS Nicotine (Nicotine 21 Mg Patch) 21 mg TD DAILY [facility] Last Admin: 11/28/20 07:40 Dose: 21 mg Documented by: Ondansetron HCl (Ondansetron 8 Mg Tablet) 8 mg PO Q8H PRN PRN PRN Reason: NAUSEA Phenobarbital (Phenobarbital 32.4 Mg Tablet) 64.8 mg PO Q6H JEANNE; Taper Stop: 11/30/20 08:14 Last Admin: 11/28/20 07:39 Dose: 64.8 mg Documented by: Sodium Chloride (0.9% Saline Lock 10 Ml Syringe) 10 - 40 ml IV UD PRN PRN Reason: SALINE FLUSH Last Admin: 11/26/20 20:48 Dose: 10 ml Documented by: Thiamine HCl (Thiamine Hydrochloride 100 Mg Tablet) 100 mg PO DAILYCM JEANNE Last Admin: 11/28/20 07:40 Dose: 100 mg Documented by: Trazodone HCl (Trazodone 100 Mg Tablet) 100 mg PO QHS PRN PRN Reason: INSOMNIA Last Admin: 11/26/20 00:16 Dose: 100 mg Documented by: Discharge Diet: No Restrictions Discharge Activity: Return to Normal Activity Home Medications: Medications to take at Discharge Celecoxib [Celebrex] 200 mg PO BID #30 capsule 11/10/20 Pantoprazole Sodium [Protonix] 20 mg PO DAILY #30 tab 11/10/20 Primary Care Physician: Care Physician,No Primary [Primary Care Provider] - Please follow up with your Primary Care Physician in: 1 Week Please Follow Up With: [facility] When: Call for follow up Disposition: Home Minutes spent on discharge:: 35 Patient Condition:: Stable Medical Necessity - Tobacco Use Smoking Status: Current every day smoker Tobacco Use: Cigarettes Meaningful Use Info Meaningful Use Diagnoses (Choose all that apply): None applicable <Kumar Nguyen - Last Filed: 11/28/20 10:00> Discharge Date and Diagnosis - Secondary Discharge Diagnosis Chronic Problems: Chronic Problems IV drug abuse (Chronic) Hospital Course and Treatment Consultations 11/26/20 06:08 Consult: Onc/Wound/software application tester Routine Comment: surgical wound to left foot Operations: None Procedures: None Summary of Care Provided: Patient seen and examined independently. Data reviewed. I agree with the above note by the nurse practitioner. The patient is a 40 year old M presents for alcohol withdrawal. Patient was having hallucinations and was started on phenobarbital. Patient alcohol withdrawal course was uncomplicated but is behavior toward ancillary staff was very abrasive. Patient was abusive verbally to staff, including the addiction medicine liaison. When spoke to the patient today and restarted that we are here to help him in recognizing the difficulty of withdrawal but we are just here simply to help him get through this acute phase. Did encourage him to seek further treatment upon discharge as it is difficult for many people to maintain sobriety on their own. He said that he has no interested in going to alcoholics anonymous. Patient has follow-up appointment with Darlyn at 180. I encouraged him to keep that appointment. He was very upset because he was missing appointment that he had today with podiatry no scheduled for 9:00. I saw him at 910. I told him that we would try to see if we can facilitate appointment for sometime this week for his foot wound. Patient seen and content with her interaction and shook my hand prior to me leaving. [] - Physical Exam Vitals/I&O's: Vital Signs Temp Pulse Resp BP Pulse Ox 36.4 C L 58 L 16 100/77 99 11/28/20 04:20 11/28/20 04:20 11/28/20 04:20 11/28/20 04:20 11/28/20 04:20 Oxygen Delivery Method Room Air Weight: 90.718 kg Body Mass Index (BMI) 26.5 Intake and Output for Last 24 Hours 11/26/20 11/27/20 11/28/20 23:59 23:59 23:59 Intake Total 1080 / 1330 350 / 350 Balance 1080 / 1330 350 / 350 General: Alert, Cooperative, No apparent distress Extremities: - - left walking boot Discharge Diet: No Restrictions Discharge Activity: Return to Normal Activity Please Follow Up With: Mitzy Storm DPM When: this week Disposition: Home Patient Condition:: Stable Medical Necessity - Tobacco Use Smoking Status: Current every day smoker Tobacco Use: Cigarettes Meaningful Use Info Meaningful Use Diagnoses (Choose all that apply): None applicable Inpatient E&M: 90101 Disch Hosp
--- NOTE | 2020-11-28 09:40 | CASEMGMT ---
Social Work Note SW reviewed notes, the last time pt was at [facility], pt was homeless. SW had offered to provide pt with housing resources but pt refused at that time. SW attempted to meet with pt again to provide housing resources, pt has been discharged. Aditi Rodriguez REEL SYSTEM OPERATOR, ANGLE DOZER OPERATOR
--- NOTE | 2020-11-28 11:20 | CASEMGMT ---
Call received from pt's director case management Ginger through [facility] Community [employer]. Ginger reports having visited pt at his parent's home but pt has been living in a camper (doorless) behind a friend's home or in a car. Ginger has assisted pt with completing an application for [facility]. Ginger reports pt's parents being supportive of him but his mother also has [employer] and is active with Palliative Care services and requires assistance/10/03 supervision/care. Pt's parents recently purchased pt's wound care supplies for him and have assisted him with his foot wound care/appointments. Gigner reports pt has reported drug use including IV Fentanyl and heroin, methamphetamines, and ETOH. Per Ginger pt has had a total of 10 overdoses and involvement in [facility] legal system. Pt reviewed document from [facility] with Ginger which states pt is required to show proof that he is in a detox program by December 04 or an warrant will be issued for his arrest. Ginger reports she witnessed that interactions with parents can become volatile. Pt's mom also actively communicating with Ginger concerns and hope that pt will cease drug use. Pt has discharged at this time. Favian Baeza RN CM
--- NOTE | 2020-11-29 15:10 | CASEMGMT ---
ROLY CM Discharge Follow-Up Phone Call. Lace: 10 Strata: 3 Discharge Date: 11/28/20. Adm Dx: ETOH detox Attempted discharge f/u phone call. No answer. Message came on stating VM has not been set up--unable to leave . Brad CHURCHN RN CM
== END 2020-11-28 09:39 | disposition home or self-care (01) | DRG 775 ==
LOC: ED 20:21 → MS3 23:39
PROVIDERS: Nurse Practitioner Family; Admitting Provider Family Medicine; Emergency Provider Emergency Medicine
DX: F10.239 Alcohol dependence with withdrawal, unspecified (principal); F15.90 Other stimulant use, unspecified, uncomplicated; F17.210 Nicotine dependence, cigarettes, uncomplicated; Z79.1 Long term (current) use of non-steroidal anti-inflammatories (NSAID); Y90.1 Blood alcohol level of 20-39 mg/100 ml; L97.522 Non-pressure chronic ulcer of other part of left foot with fat layer exposed; L97.512 Non-pressure chronic ulcer of other part of right foot with fat layer exposed; B95.61 Methicillin susceptible Staphylococcus aureus infection as the cause of diseases classified elsewhere; S92.902D Unspecified fracture of left foot, subsequent encounter for fracture with routine healing; W23.0XXD Caught, crushed, jammed, or pinched between moving objects, subsequent encounter
CPT/HCPCS: 70450; 72125; 80053; 80076; 80307; 82077; 85025; 96372; 97802; 99218; 99283; 99284; 99406; A4216; G0378

== ENCOUNTER 2020-12-02 09:16 | Emergency (ER) | payer MEDICAID, SELFPAY ==
[2020-11-26 10:33] VITALS: BMI 26.5
[2020-12-02 09:18] VITALS: BP 161/118; PULSE 87; RESP 17; TEMP 36.6; O2SAT 98; BMI 26.2
--- NOTE | 2020-12-02 09:31 | RAD_ITS ---
STUDY: X-RAY - LEFT FOOT CLINICAL: Male, 40 years old. Injury/Pain TECHNIQUE: 3 view(s) of the foot. COMPARISON: None. FINDINGS: Normal talus, calcaneus, and tarsal bones. Normal visualized subtalar, talonavicular, calcaneocuboid, tarsal and tarsometatarsal articulations. Normal metatarsi. Normal metatarsophalangeal joint of the great toe. Normal tibial and fibular sesamoid bones. Normal interphalangeal joint of the great toe. Acute nondisplaced transverse fracture the base of the first proximal phalanx. Normal second through fifth metatarsophalangeal joints. Acute oblique fracture of the fibular aspect of the base of the second proximal phalanx. The soft tissue structures are unremarkable. RAD/Foot min 3 Views IMPRESSION: 1. Acute nondisplaced transverse fracture the base of the first proximal phalanx. 2. Acute bleed fracture the fibular aspect of the base of the second proximal phalanx. Electronically Signed: Luciano Bass MD at 9:52 EDT Tel , Service support ,
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
[2020-12-02 09:46] VITALS: BP 164/118
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
[2020-12-02 10:07] VITALS: BP 164/118; PULSE 86; RESP 18
[2020-12-02 10:08] VITALS: BP 161/118
== END 2020-12-02 10:08 | disposition home or self-care (01) ==
LOC: ED 09:54
PROVIDERS: Emergency Provider Emergency Medicine
DX: S91.302D Unspecified open wound, left foot, subsequent encounter (principal); V09.9XXD Pedestrian injured in unspecified transport accident, subsequent encounter; L97.529 Non-pressure chronic ulcer of other part of left foot with unspecified severity; M84.475D Pathological fracture, left foot, subsequent encounter for fracture with routine healing
CPT/HCPCS: 73630; 99283

== ENCOUNTER 2020-12-05 09:15 | Outpatient (RCR) | payer MEDICAID, SELFPAY ==
[2020-11-07 12:37] VITALS: BMI 27.5
[2020-11-21 08:47] VITALS: BP 135/111; PULSE 81; RESP 16; TEMP 37; BMI 26.2
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
[2020-12-05 11:27] VITALS: BP 134/107; PULSE 88; RESP 20; TEMP 36.3; BMI 26.2
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
== END 2020-12-15 23:59 | disposition home or self-care (01) ==
LOC: WC 09:15
PROVIDERS: Visit Provider Podiatrist Foot & Ankle Surgery
DX: L97.522 Non-pressure chronic ulcer of other part of left foot with fat layer exposed (principal); L97.512 Non-pressure chronic ulcer of other part of right foot with fat layer exposed; S92.302D Fracture of unspecified metatarsal bone(s), left foot, subsequent encounter for fracture with routine healing; L03.116 Cellulitis of left lower limb; F19.10 Other psychoactive substance abuse, uncomplicated; F17.200 Nicotine dependence, unspecified, uncomplicated; L02.612 Cutaneous abscess of left foot; Z59.0 Homelessness; Z63.0 Problems in relationship with spouse or partner; Z79.1 Long term (current) use of non-steroidal anti-inflammatories (NSAID); Z88.5 Allergy status to narcotic agent; W23.0XXD Caught, crushed, jammed, or pinched between moving objects, subsequent encounter
CPT/HCPCS: 11042; 99213; G0463

== ENCOUNTER 2021-03-20 10:54 | Emergency (ER) | payer MEDICAID, SELFPAY ==
[2021-03-20 10:55] VITALS: BP 142/100; PULSE 88; RESP 16; TEMP 36.2; O2SAT 100; BMI 28.2
--- NOTE | 2021-03-20 11:08 | EDS_ITS ---
HPI HPI - Psych History of Present Illness Chief Complaint: Mental Health Informant: patient Onset/Context/Timing Onset: Weeks Context: Gradual Onset Timing: Continuous Current Severity: Mild Maximum Severity: Mild Associated Symptoms Associated Symptoms - Psych: Positive for Visual Hallucinations and Auditory Hallucinations Narrative Narrative: 40-year-old male states he is having auditory hallucinations where he hears people talking about what they want to do to him. [facility]. He does have a history of heroin abuse and is currently on Suboxone. He does smoke marijuana. Patient denies currently seeing a counselor. He has a known history of anxiety but he denies any specific psychiatric diagnosis otherwise. He denies being suicidal. Prior similar symptoms: Yes Recent Illness/Hospitalization: No PFSH PFSH Medical History (Updated 03/20/21 @ 15:[address] Gen Yang MD) History of drug abuse Allergy/AdvReac Type Severity Reaction Status Date / Time acetaminophen [From Vicodin] AdvReac Upset Verified 03/20/21 10:58 Stomach hydrocodone bitartrate AdvReac Upset Verified 03/20/21 10:58 [From Vicodin] Stomach ketorolac tromethamine AdvReac Other Verified 03/20/21 10:58 [From Toradol] Social History Smoking Status: Current every day smoker tobacco type: cigarettes ROS ROS ED ROS Narrative Denies any recent illness. Review of Systems ROS Unobtainable: Denies due to encephalopathy Constitutional Constitutional ED: Denies chills or fever(s) Eyes Eyes: Denies change in vision ENT ENT ED: Denies ear pain Cardiovascular Cardiovascular: Denies chest pain Respiratory/Chest Respiratory/Chest: Denies cough or dyspnea Gastrointestinal Gastrointestinal: Denies abdominal pain, diarrhea, nausea or vomiting Genitourinary Genitourinary ED: Denies dysuria Musculoskeletal Musculoskeletal: Denies myalgias Integumentary Denies rash Neurologic Neurologic: Denies headache(s) Psychiatric Psychiatric: Denies depression Endocrine Endocrinology: Denies polyuria Hematologic/Lymphatic Hematologic/Lymphatic: Denies easy bruising Allergic/Immunologic Allergic/Immunologic ED: Denies urticaria EXAM Physical Exam Narrative Exam Narrative: Middle-age male no acute distress. Vital signs stable afebrile. HEENT exam unremarkable. No smell of alcohol. Lungs clear to auscultation. Heart regular rhythm no murmur. Abdomen soft nontender. Patient moving all four extremities. No edema. Multiple tattoos. Skin otherwise unremarkable. Neurologically awake and alert with no focal motor deficits. Const Vital Signs: 03/20/21 10:55 Temperature 97.1 F L Temperature Source Temporal Pulse Rate 88 Respiratory Rate 16 Blood Pressure 142/100 H Blood Pressure Mean 114 Pulse Ox 100 Oxygen Delivery Method Room Air Positive well nourished and well developed; Negative for unkempt General Appearance ED: well developed and NAD; Negative for unkempt HEENT Reports moist mucous membranes normocephalic and atraumatic Eyes PERRL and EOMs intact bilaterally Neck no lymphadenopathy, supple and no JVD General: Negative for tenderness Resp normal respiratory effort and clear to auscultation bilaterally Cardio S1 normal heart sound, S2 normal heart sound and no murmurs Rate: regular rate Rhythm: regular rhythm GI non-tender, non-distended and no masses Auscultation: normoactive bowel sounds Palpation: soft; Negative for tender or guarding Back/Spine no CVA tenderness Extremity normal to inspection General Extremety ED: Negative for edema or tenderness General Extremity: Negative for edema Neuro oriented x3 and CN's II-XII intact bilaterally Sensorium / Orientation: alert, oriented to person, oriented to place and oriented to time; Negative for orientation impaired, confused, lethargic or stuporous Motor Exam: strength 5/5 throughout Psych speech normal, denies homicidal ideation and denies suicidal ideation; Negative for denies hallucinations Appearance: Negative for unkempt Skin General Skin Exam: Negative for jaundice Lesions: no lesions Rashes: no rashes [facility] MDM Narrative Medical decision making narrative: 49 yo Male appears to have mental illness. Currently not suicidal or homicidal. Will go through ED mental health evaluation labs and evaluation by our transition social worker. Repeat exam patient doing well at 12:45 PM. Patient is going to speak with crisis via phone. Repeat exam patient is doing well p.m. Awaiting final disposition after correctional classification counselor ing center evaluation. Patient be turned over to the afternoon physician. Medically okay for this patient is discharged home if crisis does not find anything differently than what the patient told me. Lab Data Attestation: I reviewed the patient's lab results. Lab results narrative: CBC unremarkable white count of 4 hemoglobin 14. Electrolytes unremarkable gap of 3 creatinine 0.6. Glucose 90. Tox screen negative except for positive cannabis. Alcohol negative. Labs: Laboratory Results - last 24 hr 03/20/21 03/20/21 03/20/21 11:45 11:45 11:45 WBC 4.6 RBC 4.55 L Hgb 14.2 Hct 43.7 MCV 96.0 H MCH 31.2 MCHC 32.5 RDW Std Deviation 45.6 H RDW Coeff of Zahra 12.8 Plt Count 129 L MPV 11.4 Immature Gran % (Auto) 0.200 Neut % (Auto) 45.2 L Lymph % (Auto) 42.9 H [place] % (Auto) 7.3 Eos % (Auto) 3.7 Baso % (Auto) 0.7 Absolute Neuts (auto) 2.1 Absolute Lymphs (auto) 1.95 Nucleated RBC % 0 Sodium 141 Potassium 3.9 Chloride 108 H Carbon Dioxide 30.0 Anion Gap 3 L BUN 13 Creatinine 0.61 L Estim Creat Clear Calc 181.92 Est GFR (MDRD) Af Amer 188 Est GFR (MDRD) Non-Af 155 BUN/Creatinine Ratio 21.3 H Glucose 90 Calcium 8.3 L Urine Opiates Screen Urine Methadone Screen Ur Barbiturates Screen Ur Phencyclidine Scrn Ur Amphetamines Screen U Methamphetamin-MDMA U Benzodiazepines Scrn Urine Cocaine Screen U Cannabinoids Screen Ur Drug Screen Comment Ethyl Alcohol < 3.0 03/20/21 12:10 WBC RBC Hgb Hct MCV MCH MCHC RDW Std Deviation RDW Coeff of Zahra Plt Count MPV Immature Gran % (Auto) Neut % (Auto) Lymph % (Auto) [place] % (Auto) Eos % (Auto) Baso % (Auto) Absolute Neuts (auto) Absolute Lymphs (auto) Nucleated RBC % Sodium Potassium Chloride Carbon Dioxide Anion Gap BUN Creatinine Estim Creat Clear Calc Est GFR (MDRD) Af Amer Est GFR (MDRD) Non-Af BUN/Creatinine Ratio Glucose Calcium Urine Opiates Screen NEGATIVE Urine Methadone Screen NEGATIVE Ur Barbiturates Screen NEGATIVE Ur Phencyclidine Scrn NEGATIVE Ur Amphetamines Screen NEGATIVE U Methamphetamin-MDMA NEGATIVE U Benzodiazepines Scrn NEGATIVE Urine Cocaine Screen NEGATIVE U Cannabinoids Screen POSITIVE H Ur Drug Screen Comment Ethyl Alcohol Discharge Plan Triage Chief Complaint: Mental Health ED Provider: Gen Yang Dx/Rx/DC Orders Clinical Impression: Schizophrenia Instructions: ED Schizophrenia, General Primary Care Provider: Care Physician,No Primary Referrals: Counseling,Center [GROUP OF PHYSICIANS] - As soon as possible Care Physician,No Primary [Primary Care Provider] - Activity Restrictions/Additional Instructions: Call follow-up with the counseling center soon as possible. Return to the emergency department if you are having problems. Disposition Disposition: Home, Self Care
[2021-03-20 11:55] LABS: Absolute Lymphocyte Count 1.95 X10^3/uL (0.83-4.51); Absolute Neutrophil Count 2.1 X10^3/uL (2.0-7.7); Basophil# 0.03 X10^3/uL; Basophil% 0.7 % (0-1); Eosinophil# 0.17 X10^3/uL; Eosinophils% 3.7 % (0-5); Hematocrit 43.7 % (40-54); Hemoglobin 14.2 g/dL (13.0-16.5); Lymphocyte # 1.95 X10^3/ul (0.83-4.51); Lymphocyte % 42.9 % (19-41); Mean Corp Hgb Conc 32.5 g/dL (32-36); Mean Corpuscular Hgb 31.2 pg (27.0-32.0); Mean Platelet Vol. 11.4 fl (6.2-12.0); Monocyte# 0.33 X10^3/uL; Monocyte% 7.3 % (0-10); NRBC Flagged by Analyzer 0 % (0-5); Neutrophil # 2.06 X10^3/uL (2.7-7.7); Neutrophil % 45.2 % (47-70); Platelet Count 129 K/mm3 (150-450); RBC Distribution Width CV 12.8 % (11.6-14.6); RBC Distribution Width SD 45.6 fl (35.1-43.9); Red Blood Count 4.55 M/mm3 (4.6-6.2); White Blood Count 4.6 K/mm3 (4.4-11.0)
[2021-03-20 12:03] LABS: Anion Gap 3 (5-15); BUN 13 mg/dL (7-18); BUN/Creat Ratio 21.3 RATIO (10-20); Calcium,Total 8.3 mg/dL (8.5-10.1); Chloride 108 mmol/L (98-107); Creatinine, Serum 0.61 mg/dL (0.70-1.30); EST Glomerular Filtration Rate 155 mL/min (>60); Est Glom Filt Rate - Afr Amer 188 mL/min (>60); Estimated Creatinine Clearance 181.92 ml/min; Glucose 90 mg/dL (74-106); Potassium 3.9 mmol/L (3.5-5.1); Sodium Level 141 mmol/L (136-145)
[2021-03-20 12:12] LABS: Alcohol, Blood (Medical)-Serum < 3.0 mg/dL
[2021-03-20 12:41] LABS: Amphetamine Urine VISTA NEGATIVE (<1000 ng/mL); Barbiturate Urine VISTA NEGATIVE (< 200 ng/mL); Benzodiazepine Urine VISTA NEGATIVE (< 200 ng/mL); Cocaine Urine VISTA NEGATIVE (< 300 ng/mL); Ecstacy Urine VISTA NEGATIVE (< 500 ng/mL); Methadone Urine VISTA NEGATIVE (< 300 ng/mL); PCP Urine VISTA NEGATIVE (< 25 ng/mL); THC Urine VISTA POSITIVE (< 50 ng/mL); Vista UDS pH Range 5
--- NOTE | 2021-03-20 15:46 | ED.RN ---
PT GIVEN DISCHARGE INSTRUCTION AND GAVE APPOINTMENT INFORMATION [facility]. PT STATES HE WILL BE BACK TONIGHT AND EXPLAINED HE NEEDS TO F/U WITH THE [facility]. THAT IS THE AVENUE HE NEEDS TO TAKE TO GET HELP. EXPLAINED HE HAS ALREADY BEEN MEDICALLY CLEARED AND HE CAN NOT RETURN TO THE ER BECAUSE HE WANTS A PLACE TO STAY FOR THE NIGHT. PT STATED FOR THIS NURSE TO GET THE FUCK OUT OF HIS WAY AND AMBULATED FROM ER.
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
--- NOTE | 2021-03-20 18:55 | CM.ED ---
SUMANTH note SUMANTH called Ada at [facility]. Ada said that she would be able to see patient for crisis appointment from 11-12 am.SUMANTH faxed this writers assessment to [facility] for continuity of care. Plan: Follow up with [facility] crisis appointment Ada KAPLAN
== END 2021-03-20 15:53 | disposition home or self-care (01) ==
PROVIDERS: Emergency Provider Emergency Medicine
DX: F20.9 Schizophrenia, unspecified (principal); F17.210 Nicotine dependence, cigarettes, uncomplicated; F19.11 Other psychoactive substance abuse, in remission
CPT/HCPCS: 80048; 80307; 82077; 85025; 99282